=== PATIENT | male | born 1940 | race Caucasian/White ===

== ENCOUNTER 2016-12-20 06:21 | Observation (INO) | payer MEDICARE ==
[2016-12-20] MEDS ORDERED: Vancomycin(*) 1,000 MG in NS 0.9% 250 ML* 250 ML IVPB ONE (06:52)
[2016-12-20 08:08] LABS: Hematocrit 35 % (42-52); Hemoglobin 11.2 g/dl (14.0-18.0); Mean Corpuscular HGB Conc 33 g/dl (31-36); Mean Corpuscular Hemoglobin 35 pg (27-31); Mean Platelet Volume 8 um3 (7.4-10.4); Red Blood Count 3.18 10^6/ul (4.0-5.4); Red Cell Distribution Width 17 % (10.5-15); White Blood Count 18.6 10^3/ul (3.5-10.8)
[2016-12-20 08:09] LABS: Comments Flag Yes
[2016-12-20 08:10] LABS: Add Diff/Slide Review? Slide Review Added; Mean Corpuscular Volume 109 fL (80-94)
[2016-12-20 08:20] LABS: Albumin 3.9 g/dL (3.2-5.2); BUN/Creatinine Ratio 5.9 (8-20); Calcium 9.4 mg/dL (8.6-10.3); EGFR African American 10.6 (>60); EGFR Non-African American 8.2 (>60); Globulin 3.3 g/dL (2-4); Potassium 4.2 mmol/L (3.5-5.0); Total Bilirubin 1.9 mg/dL (0.2-1.0); Total Protein 7.2 g/dL (6.4-8.9)
--- NOTE | 2016-12-20 08:27 | RAD ---
HISTORY: Fever, confusion, weakness COMPARISONS: February 04, 2016 VIEWS: 2: frontal portable view of the chest at 6:50 AM FINDINGS: LINES AND TUBES: None. CARDIOMEDIASTINAL SILHOUETTE: The cardiomediastinal silhouette is normal for portable technique. PLEURA: The costophrenic angles are sharp. No pleural abnormalities are noted. LUNG PARENCHYMA: The lungs are clear. ABDOMEN: The upper abdomen is clear. There is no subphrenic gas. BONES AND SOFT TISSUES: No bone or soft tissue abnormalities are noted. IMPRESSION: NO ACTIVE CARDIOPULMONARY DISEASE.
[2016-12-20] MEDS ORDERED: Cefepime(*) 1 GM in NS 0.9% 50 ML* 50 ML IVPB ONE (08:29)
[2016-12-20] MEDS ORDERED: NS 0.9% 1000 ML* 1,000 ML IV ONE (08:29)
[2016-12-20 08:33] LABS: Troponin I 0.13 ng/mL (<0.04)
--- NOTE | 2016-12-20 09:30 | ED ---
Chaz Lee Thomas, scribed for Lion Horne MD on 12/20/16 at 0828 . Progress - Progress Note Progress Note: The patient is a sign out from Dr. Whiteside at shift change. At 08:28, I consulted with Dr. Woodard, hospitalist, who will admit the patient to [facility] [place]. Course/Dx - Course Course Of Treatment: Mr. Brown presented to the ED on a previous shift febrile and feeling shaky. His only other symptom was that his noticed his urine dribbled on the way to the BR this AM. He was given Vanco and labs were being obtained when I came on shift. His pressure was a bit soft in the 90 's so I gave him some fluid slowly and judiciously as well as adding cefepime for the gram negative coverage. He was noted to have frequent VPCs and a trop of 1.3 although his trops generally run in that vicinity. He is being admitted to telemetry. - Diagnoses Provider Diagnoses: Sepsis - Critical Care Time Critical Care Time: 30-74 min The documentation as recorded by the Chaz machuca Thomas accurately reflects the service I personally performed and the decisions made by me, Lion Horne MD.
[2016-12-20 09:34] LABS: Magnesium 1.7 mg/dL (1.9-2.7)
[2016-12-20] MEDS ORDERED: NS 0.9% 50 ML* 50 ML ONE (09:43)
[2016-12-20] MEDS ORDERED: Acetaminophen TAB* 325 MG PO PRN (09:46)
[2016-12-20] MEDS ORDERED: Senna TAB PO PRN (09:46)
[2016-12-20] MEDS ORDERED: Morphine INJ* 2 MG/ML 1 ML SYRINGE (TWO MG - NEW SYRINGE VERSION) IV PRN (09:46)
[2016-12-20 09:48] LABS: C Reactive Protein 166.62 mg/L (< 5.00)
[2016-12-20] MEDS ORDERED: NS 0.9% 1000 ML* 1,000 ML IV SCH (10:00)
[2016-12-20] MEDS ORDERED: Magnesium Sulfate 2 GM IV* 2 GM/50 ML BAG IVPB ONE (10:08)
[2016-12-20 10:42] LABS: Urine Bacteria Absent (Absent); Urine Bilirubin Negative (Negative); Urine Glucose Negative (Negative); Urine Nitrite Negative (Negative)
--- NOTE | 2016-12-20 12:46 | HP ---
CC: Dr. Aguirre; Dr. Hastings * HISTORY AND PHYSICAL: DATE OF ADMISSION: 12/20/16 PRIMARY CARE PROVIDER: Dr. Aguirre. CHIEF COMPLAINT: Confusion and fever. HISTORY OF PRESENT ILLNESS: Patel Brown is a 75-year-old male with history of endstage renal disease as well as on chronic budesonide p.o. for microscopic colitis, who had dialysis yesterday and after dialysis, he felt poorly. He went to bed, was confused at night and as per , slightly "agitated." The patient apparently gets hyperactive and confused whenever he gets ill. He presented to the ED with a temperature of 99.9 degrees. So far, we do not have the source of his infection, apart from that he had been coughing up clear sputum for the past several days and has history of frequent pneumonias. At this point, he is going to be admitted with a working diagnosis of sepsis, likely due to bronchitis. He is going to be placed on broad spectrum antibiotics. PAST MEDICAL HISTORY: 1. Endstage renal disease on dialysis Mondays, Wednesdays and Fridays. 2. History of atrial fibrillation, Coumadin was discontinued in January 2016 when the patient had a lower GI bleed and several units of packed red blood cell transfusions. Since then, the patient had not been on anticoagulation. 3. History of recurrent C. diff, status post fecal transplant. 4. History of hypertension. 5. Diabetes, diet controlled. 6. History of diastolic CHF with EF of 55% to 60% in 2014. 7. History of COPD, not on oxygen at home. 8. History of coronary artery disease, status post HI. 9. History of elevated troponins in the past due to endstage renal disease and stress and demand ischemia. 10. History of microscopic colitis, noted in 2010, on budesonide every since. 11. History of chronic microcytic anemia, on iron infusions and Epogen infusions, on dialysis. 12. History of peripheral vascular disease. 13. 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 14. History of carotid endarterectomy. 15. History of cataract surgery. 15. Appendectomy. 16. Orchiectomy. 17. Fistula placement. 18. History of fecal transplant. MEDICATIONS AT HOME: Include: 1. Multivitamin 1 tablet daily. 2. Fiber supplement daily. 3. Midodrine 5 mg daily in the a.m. 4. Aspirin 81 mg daily. 5. Symbicort 160/4.5 two puffs b.i.d. 6. Lipitor 10 mg daily. 7. Torsemide 40 mg b.i.d. 8. Zaroxolyn 2.5 mg every other day. 9. Omeprazole 20 mg daily. 10. Pletal 100 mg b.i.d. 11. Entocort EC (budesonide) 3 mg daily. 12. Metoprolol tartrate 12.5 mg b.i.d. 13. Allopurinol 200 mg daily. ALLERGIES: LISINOPRIL causes hives, swelling of lips and tongue. BENICAR causes severe diarrhea and dizziness. FAMILY HISTORY: Positive for father with diabetes and polio, two brothers with colon cancer. SOCIAL HISTORY: The patient has history of smoking remotely with [id number] history of smoking, quit in . He denies any alcohol or drug use. He lives with his , who is his healthcare proxy. His 's name is Cyndi Brown. REVIEW OF SYSTEMS: On review of systems, please see history of present illness. The other remaining 12 systems were reviewed with the patient with the help of his and were otherwise negative. PHYSICAL EXAMINATION GENERAL: The patient is a pleasant 75-year-old male who is slightly confused, with poor recall, but is still oriented x3 the remainder of evaluation. He appears in no acute distress or discomfort. VITAL SIGNS: Blood pressure in the emergency department were in the 90's, currently is 119/53, heart rate of 104 and irregular, respiratory rate 27, oxygen saturation 96%, on 2 L of oxygen via nasal cannula, temperature of 99.9. HEENT: Head: Atraumatic, normocephalic. Eyes: Pupils are equal and reactive to light and accommodation. Oropharynx clear. Mucosa moist. NECK: Supple. No JVD. No bruits bilaterally. RESPIRATORY: Clear to auscultation bilaterally. CARDIOVASCULAR: Irregularly irregular rhythm, no murmur. ABDOMEN: Protuberant, soft, nontender. Bowel sounds are present in all 4 quadrants. EXTREMITIES: There is no edema. Pulses are +2 bilaterally. No clubbing or cyanosis. NEURO EVALUATION: Speech clear. Cranial nerves II through XII are grossly intact. Motor strength is 5/5 bilaterally. PSYCHIATRIC EVALUATION: Although the patient is oriented x3, he is hyperactive , mildly encephalopathic with poor recall. SKIN: The patient has scattered seborrheic keratosis on upper and lower extremities. DIAGNOSTIC STUDIES/LAB DATA: Showed a white blood cell count of 18.6, hemoglobin of 11.2, hematocrit of 35, MCV of 109, and platelets of 151. Sodium of 134, potassium 4.2, chloride 90, carbon dioxide 31, BUN 39, creatinine 6.6. Lactic acid of 2.3. Liver function tests showed normal bilirubin of 1.9, otherwise patient's AST and ALT are not elevated and alkaline phosphatase is 102, which is within normal limits. Magnesium was low at 1.7. Troponin of 0.12, which is consistent with prior. C-reactive protein was 166. The patient's portable chest x-ray did not show any acute abnormalities. The patient's EKG showed multiple PVCs and PACs with what appears to be underlying sinus rhythm with a heart rate of 110 beats per minute. Comparing with patient' s prior EKGs, the patient's right bundle-branch block is unchanged. The multiple PVCs are new, although from past medical history, the patient has history of rate related left bundle. Urinalysis is pending at the time of dictation. Blood cultures were obtained. ASSESSMENT AND PLAN: 1. At this point, the patient meets sepsis criteria. I suspect this is due to bronchitis, unless we find any other source of infection. He was treated with vancomycin and cefepime in the emergency department. He is going to be switched to ceftriaxone and azithromycin in the hospital. Blood cultures are obtained and pending. I will also obtain urinalysis after straight cath. The patient does produce urine once a day. 2. In regards to patient's chronic obstructive pulmonary disease, this is not in exacerbation. His Symbicort is going to be switched to Dulera while in the hospital, which is on formulary. 3. For his history of atrial fibrillation. Currently, the patient has multiple premature ventricular contractions and premature atrial contractions noted, and underlying what appears to be sinus rhythm with right bundle-branch block. He has low magnesium and he is septic. He is going to be placed on telemetry monitored floor, his magnesium is going to be replaced. I will also continue his beta godwin. 4. In regards to patient's history of microscopic colitis. His symptoms today do not appear to be related to gastrointestinal issues. His bowel had been regular without any problems. He has no abdominal pain. He is on Entocort, which is not on formulary. In fact, we do not have any p.o. budesonide available at the hospital. Due to patient being right now septic, I will place him on IV Solu- Medrol for the time being. For my review of systemic absorption of budesonide is approximately 9% to 21%. Nevertheless, at this point, I think that it would be beneficial for the patient to have a dose of steroids. 5. The patient's elevated troponin is his baseline. Nevertheless, I will check it in a few hours. He denies any chest pain. He is going to be continued on telemetry. 6. In regards to the patient's history of endstage renal disease. The patient' s dialysis was on Thursday. I will not resuscitate him with high volume due to his history of endstage renal disease. He received 1 L of intravenous fluids in the emergency department and he is going to be placed on intravenous fluids at 75 mL an hour. I will continue his torsemide, but we will hold Zaroxolyn for the time being. 7. For DVT prophylaxis, the patient is high risk and he is going to be placed on heparin subcutaneously. 8. The patient's code status is do not resuscitate and MOLST was confirmed with patient's . TIME SPENT: Approximately 65 minutes was spent on admission of this patient, more than half that time was spent [id number] with the patient and patient's during the interview and physical exam. [id number]/[facility] #: [id number] [facility]ITALChris
[2016-12-20] MEDS: Azithromycin IV(*) 500 MG in NS 0.9% 250 ML* 250 ML IVPB SCH (13:38)
[2016-12-20] MEDS: Heparin VIAL(*) 5000 UNITS/ML VIAL (FIVE THOUSAND) SUBCUT SCH ×2 (14:25→22:06)
[2016-12-20] MEDS: Mometasone/Formoter 100/5 MDI INH SCH (20:41)
[2016-12-20] MEDS: Cilostazol TAB* 100 MG PO SCH (22:06)
[2016-12-20] MEDS: Docusate CAP* 100 MG PO SCH (22:06)
[2016-12-20] MEDS: Lactobacillus Acidophilu (GG)* 1 CAP CAP PO SCH (22:06)
[2016-12-20] MEDS: Metoprolol Tartrate TAB* 25 MG PO SCH (22:06)
[2016-12-20] MEDS: Torsemide TAB* 20 MG PO SCH (22:06)
[2016-12-21] MEDS: Heparin VIAL(*) 5000 UNITS/ML VIAL (FIVE THOUSAND) SUBCUT SCH (05:36)
[2016-12-21 06:53] LABS: Hematocrit 28 % (42-52); Hemoglobin 9.2 g/dl (14.0-18.0); Mean Corpuscular HGB Conc 33 g/dl (31-36); Mean Corpuscular Hemoglobin 36 pg (27-31); Mean Platelet Volume 8 um3 (7.4-10.4); Red Blood Count 2.59 10^6/ul (4.0-5.4); Red Cell Distribution Width 17 % (10.5-15); White Blood Count 12.5 10^3/ul (3.5-10.8)
[2016-12-21 06:56] LABS: Comments Flag Yes; Mean Corpuscular Volume 109 fL (80-94)
[2016-12-21 07:09] LABS: BUN/Creatinine Ratio 6.3 (8-20); Calcium 8.8 mg/dL (8.6-10.3); EGFR Non-African American 6.2 (>60); Potassium 4.3 mmol/L (3.5-5.0)
[2016-12-21] MEDS ORDERED: Omeprazole CAP* 20 MG PO SCH (07:30)
[2016-12-21 08:16] LABS: Magnesium 2.3 mg/dL (1.9-2.7)
[2016-12-21] MEDS ORDERED: CMCS - Midodrine (NF) 5 MG TAB PO SCH (08:30)
[2016-12-21] MEDS: Mometasone/Formoter 100/5 MDI INH SCH (08:38)
[2016-12-21] MEDS: Docusate CAP* 100 MG PO SCH (08:58)
[2016-12-21] MEDS: Cilostazol TAB* 100 MG PO SCH (08:58)
[2016-12-21] MEDS: Lactobacillus Acidophilu (GG)* 1 CAP CAP PO SCH (08:59)
[2016-12-21] MEDS: Metoprolol Tartrate TAB* 25 MG PO SCH (08:59)
[2016-12-21] MEDS: Torsemide TAB* 20 MG PO SCH (08:59)
[2016-12-21] MEDS ORDERED: methylPREDNISolone SOD 40 MG* 1 ML VIAL IV SCH (09:00)
[2016-12-21] MEDS ORDERED: Atorvastatin* 10 MG TAB PO SCH (09:00)
[2016-12-21] MEDS ORDERED: Aspirin Low Dose CHEW TAB* 81 MG PO SCH (09:00)
[2016-12-21] MEDS ORDERED: Allopurinol TAB* 100 MG PO SCH (09:00)
[2016-12-21] MEDS ORDERED: cefTRIAXone VIAL(*) 1,000 MG in NS 0.9% 50 ML* 50 ML IVPB SCH (11:00)
[2016-12-21] MEDS: Azithromycin IV(*) 500 MG in NS 0.9% 250 ML* 250 ML IVPB SCH (11:44)
[2016-12-21 12:42] VITALS: BP 110/42
--- NOTE | 2016-12-22 06:00 | DS ---
CC: Dr. Michael Aguirre * DISCHARGE SUMMARY: DATE OF ADMISSION: 12/20/16 DATE OF DISCHARGE: 12/21/16 PRIMARY CARE PROVIDER: Michael Aguirre MD MY ATTENDING WHILE IN THE HOSPITAL: Moises Kaur MD * (DICTATED BY SELENE WOLF) PRIMARY DISCHARGE DIAGNOSES: 1. Urinary tract infection. 2. Altered mental status. SECONDARY DISCHARGE DIAGNOSES: 1. End-stage renal disease with dialysis. 2. Atrial fibrillation, not on anticoagulation. 3. Clostridium diff, status post fecal transplant. 4. Hypertension. 5. Diabetes. 6. Congestive heart failure. 7. Chronic obstructive pulmonary disease. 8. Coronary artery disease, status post myocardial infarction. 9. Microscopic colitis. 10. Microcytic anemia with iron infusions. 11. Peripheral vascular disease. 12. Right bundle-branch block with left anterior hemiblock. 13. Carotid endarterectomy. 14. Cataract surgery. 15. Appendectomy. 16. Orchiectomy. 17. Fistula placement. STUDIES DONE WHILE IN THE HOSPITAL: 1. Chest x-ray from 12/20/16 read as no active cardiopulmonary disease. 2. Electrocardiogram from 12/20/16 shows sinus tachycardia with occasional ventricular bigeminy, right bundle-branch block, un-interpretable ST segment and left axis deviation. PVCs are new since previous record. 3. Chest X-Ray from 12/20/16 read as no significant changes from previous. MEDICATIONS AT DISCHARGE: 1. Omeprazole 20 mg p.o. daily. 2. Pletal 100 mg p.o. b.i.d. 3. Allopurinol 200 mg p.o. daily. 4. Lipitor 10 mg p.o. daily. 5. Metolazone 2.5 mg p.o. every other day. 6. Torsemide 40 mg p.o. b.i.d. 7. Aspirin 81 mg p.o. daily. 8. Multivitamin 1 tab p.o. daily. 9. Entocort 3 mg p.o. daily. 10. Midodrine 2.5 mg p.o. daily with meal. 11. Symbicort 160/4.5 two puffs inhalation b.i.d. 12. Metoprolol tartrate 12.5 mg p.o. b.i.d. 13. Fiber 1 tab p.o. daily. 14. Cefpodoxime 200 mg every other other after dialysis x3. New medication at discharge, cefpodoxime. Discontinued medications at discharge, none. HOSPITAL COURSE: This is a brief summary of the patient's presentation. For more details, please see the history and physical from Dr. Delmi Woodard from 12/20/16. In brief, the patient is a 75-year-old male with past medical history as above, who went to bed on 12/19/16 and was confused during night and slightly agitated. This was consistent with previous episodes where he became ill. Patient presented to the ED with the temperature of 99.9. Patient had been coughing up clear sputum for several days to the day of presentation, but on other interview stated this has been going on for months. Patient met sepsis criteria and received antibiotics while in the emergency department. Patient was admitted to the hospital, given ceftriaxone and azithromycin in addition to one dose of vancomycin and cefepime in the emergency department. Patient improved greatly overnight, returned to his baseline per his . Patient's vital signs are stable. Patient continued to have frequent PVCs on telemetry monitoring, but was no longer in bigeminy. At discharge, patient had no more. Patient's T-max overnight 99.6. Patient has no acute complaints and said he felt absolutely fine on 12/21/16. Patient had no symptoms from his urinary tract infection. Patient's urine grew E. coli 75 to 1000 colonies. Patient was discharged on 12/21/16 with prescription for cefpodoxime to be taken every day after dialysis. PHYSICAL EXAMINATION ON DAY OF DISCHARGE: General: The patient is a 75-year- old male who appears older than stated age and sitting in the exam bed, in no acute distress. Vital Signs: At discharge, temperature 97.5, pulse rate 90, respiratory rate 16, oxygen saturation 97% on room air, blood pressure 113/38. HEENT: Head normocephalic, atraumatic. Sclerae anicteric. No conjunctival injection. Nasal mucosa moist. Pharynx: Nonerythematous. Oral mucosa moist. Neck: Supple. Nontender. No lymphadenopathy. No carotid bruits auscultated. Cardiac: Regular rate and rhythm. No clicks, murmurs, gallops or rubs. Pulses 2+ in bilateral dorsalis pedis, posterior tibialis, and radial area. Lungs: Clear to auscultation bilaterally. No wheezes, rales, or rhonchi. Good air exchange. Abdomen: Obese, nontender. There is a slight area of tenderness in the central abdomen which the patient states is a chronic problem. Bowel sounds present and normoactive in all 4 quadrants. No hepatosplenomegaly. No abdominal bruit auscultated. Genitourinary: No CVA tenderness or suprapubic tenderness. Skin: Clean, dry, intact. No rash. Neuro : Cranial nerves II through XII grossly intact. Alert and oriented x3. No focal deficits. Psychiatric: Patient is pleasant and cooperative. LABORATORY DATA: On the day of discharge: White blood cell count 12.5, hemoglobin 9.2, MCV 109, MCH 36, RDW 17, platelet count 123. Sodium 135, potassium 4.3, chloride 95, BUN 53, creatinine 8.36, glucose 88, calcium 8.8, magnesium 2.3. Of note, lactic acid on 12/20/16 is 2.3 and repeat at 1.7. Troponin I was 1.3 x2. DISCHARGE PLAN: The patient will be discharged to follow up with his primary care doctor. Patient will be treated with cefpodoxime 200 mg p.o. after each session of dialysis due to poor renal clearance. Patient should follow up with his primary care doctor within 1 week. Patient should return to the hospital for significant increase shortness of breath, fever, chills, altered mental status, or other alarming symptoms. Patient should have dialysis scheduled Thursday, Thursday, and Thursday. Patient will follow up with maintenance service dispatcher as scheduled. Patient should engage in activities as tolerated and have a renal, heart-healthy consistent carbohydrate diet. TIME SPENT: Approximately 40 minutes was spent on this discharge, 20 minutes of which was spent [id number] with the patient obtaining history and physical and discussing the treatment plan. SELENE WOLF [id number]/[facility] #: [id number] [facility]
[2016-12-22] MEDS ORDERED: Metolazone TAB* 5 MG PO SCH (09:00)
== END 2016-12-21 14:00 | disposition home or self-care (01) ==
LOC: ED 06:21 → MED 08:31
PROVIDERS: ADMIT Internal Medicine; ATTEND Internal Medicine
DX: N39.0 Urinary tract infection, site not specified (principal); R41.82 Altered mental status, unspecified; I13.2 Hypertensive heart and chronic kidney disease with heart failure and with stage 5 chronic kidney disease, or end stage renal disease; E11.22 Type 2 diabetes mellitus with diabetic chronic kidney disease; N18.6 End stage renal disease; I50.9 Heart failure, unspecified; Z99.2 Dependence on renal dialysis; I48.91 Unspecified atrial fibrillation; J44.9 Chronic obstructive pulmonary disease, unspecified; I25.10 Atherosclerotic heart disease of native coronary artery without angina pectoris; I25.2 Old myocardial infarction; D50.9 Iron deficiency anemia, unspecified; I73.9 Peripheral vascular disease, unspecified; I45.10 Unspecified right bundle-branch block; Z79.899 Other long term (current) drug therapy; Z88.8 Allergy status to other drugs, medicaments and biological substances; Z87.891 Personal history of nicotine dependence; R74.8 Abnormal levels of other serum enzymes; R00.0 Tachycardia, unspecified
CPT/HCPCS: 36415; 71010; 80048; 80053; 81003; 81015; 83605; 83735; 84484; 85025; 85610; 85730; 86140; 87040; 87077; 87086; 87186; 87502; 93005; 94640; 96365; 96366; 96367; 96372; 96375; 99291; A9270-GY; G0378; J0456; J0692; J0696; J1644; J2920; J3370; J3475

== ENCOUNTER 2017-08-23 22:09 | Inpatient (IN) | payer MEDICARE ==
[2017-08-23] MEDS ORDERED: NS 0.9% 1000 ML* 1,000 ML IV ONE (22:27)
[2017-08-23] MEDS ORDERED: Pantoprazole IV* 40 MG IV ONE (22:27)
--- OUTSIDE RECORDS SUMMARY | 2017-08-23 22:28 | XMS REPORT ---
:1940 External Reference #:[id number] Author Organization [employer] Address [address] [place] [address] [place] [address] Phone [phone] Care Team Providers Name Role Phone Michael Aguirre MD Primary Care Physician Unavailable Payers Type Date Identification Numbers Payment Provider Subscriber Medicare Primary Effective: Policy Number: Medicare Patel Brown 2004 [id number] PayID: [id number] [address] [place] [address] [facility] Policy Number: [facility] Patel Brown JR [id number] PayID: [id number] [address] [place] [address] Problems Description No Information Family History Date Family Member(s) Problem(s) Comments General No Current Problems Social History Type Date Description Comments Lives With Spouse Occupation Retired ETOH Use Denies alcohol use Smoking Patient is a former smoker 1 - 1.5 ppd x 30 yrs - quit 1989 Exercise Type/Frequency Does not exercise Allergies, Adverse Reactions, Alerts Date Description Reaction Status Severity Comments 03/12/2015 Benicar active 03/12/2015 Lisinopril active Medications Medication Date Status Form Strength Qnty SIG Indications Ordering Provider Xeroform 5"X9" 08/03/ Active use once S52.125A Tova 2018 daily for Pérez, dressing M.D. changes Roll Gauze 3" 08/03/ Active 30unit use for S52.125A Tova 2018 s dressing Pérez, changes M.D. once daily Budesonide ER 00/00/ Active Caps ER 3mg 2 by mouth Unknown 0000 24HR daily Metoprolol / Active Tablets 25mg 60tabs 1/2 by Unknown Tartrate 0000 mouth twice a day Torsemide / Active Tablets 20mg 2 by mouth Unknown 0000 twice a day Atorvastatin / Active Tablets 10mg 1 by mouth Unknown Calcium 0000 every day Metolazone / Active Tablets 2.5mg take 1 Unknown 0000 tablet by mouth every other day 1 hr prior to dialysis Cilostazol / Active Tablets 100mg 1 by mouth Unknown 0000 twice a day Allopurinol / Active Tablets 100mg 2 by mouth Unknown 0000 every day Omeprazole / Active Capsules 20mg 1 by mouth Unknown 0000 DR every day Aspirin Adult / Active Tablets DR 81mg 1 by mouth Unknown Low Dose 0000 every day Nephrovite / Active Tablets 1 by mouth Unknown 0000 every day Fiber Therapy / Active Powder 2GM/10.2GM 1 po qd Unknown 0000 Epoetin Rocky / Active 9000 9000 units Unknown 0000 IV at dialysis Hectorol / Active 2mcg IVat Unknown 0000 dialysis Venofer / Active Solution 20mg/ml IV at Unknown 0000 dialysis Renvela / Active Tablets 800mg 3 po with Unknown 0000 every meal and snack Ropinirole HCL / Active Tablets 0.25mg 1 po bid Unknown 0000 Symbicort / Active Aerosol 160-4.5mcg 2 puff Unknown 0000 /Act twice a day Midodrine HCL / Active Tablets 5mg 1 tab Unknown 0000 prior to dialysis Loratadine / Active Tablets 10mg 1 by mouth Unknown 0000 every day Vancomycin HCL 03/12/ Hx Capsules 125mg 45caps 3 times a A04.7 Ciro Yates 2016 - day until [place], 03/26/ two days M.D. 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 , then stop Vancomycin HCL / Hx Capsules 125mg 1 po 4 x Unknown 0000 - daily x 2 03/12/ wks 2015 Florastor / Hx Capsules 250mg by mouth Unknown 0000 - four times 03/08/ a day 2015 Dificid / Hx Tablets 200mg 1 po bid Unknown 0000 - 2015 Cephalexin / Hx Capsules 250mg 1 tab by Unknown 0000 - mouth 04/06/ twice per 2016 day Tramadol HCL / Hx Tablets 50mg 2 po prn Unknown 0000 - pain 2017 Fish Oil / Hx Capsules 1000mg 1 by mouth Unknown 0000 - twice a 2016 Doxycycline / Hx Capsules 100mg 1 po bid Unknown Hyclate - 2015 Warfarin / Hx Tablets 2.5mg Unknown Sodium - 2016 Doxycycline / Hx Capsules 100mg Unknown Hyclate - 2015 Vital Signs Date Vital Result Comment 08/13/2017 Height 71 inches 5'11" Weight 254.00 lb Heart Rate 64 /min Respiratory Rate 22 /min Body Temperature 97.4 F Pain Level 0 BMI (Body Mass Index) 35.4 kg/m2 08/03/2017 Height 71 inches 5'11" Weight 254.00 lb Heart Rate 76 /min BP Systolic 124 mmHg BP Diastolic 74 mmHg Respiratory Rate 14 /min Body Temperature 99.1 F Pain Level 7 BMI (Body Mass Index) 35.4 kg/m2 07/10/2016 Height 71 inches 5'11" Weight 230.00 lb Heart Rate 90 /min BP Systolic Sitting 116 mmHg BP Diastolic Sitting 54 mmHg Respiratory Rate 18 /min Body Temperature 98.7 F BMI (Body Mass Index) 32.1 kg/m2 06/05/2016 Height 71 inches 5'11" Weight 227.00 lb Heart Rate 84 /min BP Systolic Sitting 106 mmHg BP Diastolic Sitting 60 mmHg Respiratory Rate 20 /min Body Temperature 98.5 F BMI (Body Mass Index) 31.7 kg/m2 08/28/2015 Height 71 inches 5'11" Weight 220.12 lb Heart Rate 118 /min BP Systolic Sitting 138 mmHg BP Diastolic Sitting 88 mmHg Respiratory Rate 16 /min Body Temperature 98.4 F O2 % BldC Oximetry 96 % BMI (Body Mass Index) 30.7 kg/m2 08/15/2015 Height 71 inches 5'11" Weight 219.00 lb Heart Rate 79 /min BP Systolic Sitting 138 mmHg BP Diastolic Sitting 64 mmHg Respiratory Rate 16 /min Body Temperature 99.6 F O2 % BldC Oximetry 95 % BMI (Body Mass Index) 30.5 kg/m2 06/13/2015 Height 71 inches 5'11" Weight 218.00 lb Heart Rate 58 /min BP Systolic Sitting 138 mmHg BP Diastolic Sitting 60 mmHg Respiratory Rate 18 /min Body Temperature 99.4 F O2 % BldC Oximetry 97 % BMI (Body Mass Index) 30.4 kg/m2 03/27/2015 Height 71 inches 5'11" Weight 219.25 lb Heart Rate 80 /min BP Systolic Sitting 120 mmHg BP Diastolic Sitting 60 mmHg Respiratory Rate 18 /min Body Temperature 98.3 F BMI (Body Mass Index) 30.6 kg/m2 03/12/2015 Height 71 inches 5'11" Weight 220.00 lb Heart Rate 86 /min BP Systolic Sitting 112 mmHg BP Diastolic Sitting 55 mmHg Respiratory Rate 18 /min Body Temperature 98.8 F BMI (Body Mass Index) 30.7 kg/m2 Results Test Date Test Result H/L Range Note Laboratory test finding 06/09/2016 TSH (Thyroid Stim 3.40 mcIU/mL 0.34- 5.60 Horm) CBC Auto Diff 06/09/2016 White Blood Count 12.2 10^3/uL High 3.5-10.8 Red Blood Count 3.50 10^6/uL Low 4.0-5.4 Hemoglobin 12.0 g/dL Low 14.0-18.0 Hematocrit 37 % Low 42-52 Mean Corpuscular Volume 107 fL High 80-94 Mean Corpuscular Hemoglobin 34 pg High 27-31 Mean Corpuscular HGB Conc 32 g/dL 31-36 Red Cell Distribution Width 17 % High 10.5-15 Platelet Count 172 10^3/uL 150-450 Mean Platelet Volume 8 um3 7.4-10.4 Abs Neutrophils 8.4 10^3/uL High 1.5-7.7 Abs Lymphocytes 2.6 10^3/uL 1.0-4.8 Abs Monocytes 0.9 10^3/uL High 0-0.8 Abs Eosinophils 0.2 10^3/uL 0-0.6 Abs Basophils 0.1 10^3/uL 0-0.2 Abs Nucleated RBC 0.02 10^3/uL Granulocyte % 69.2 % 38-83 Lymphocyte % 21.2 % Low 25-47 Monocyte % 7.5 % 1-9 Eosinophil % 1.7 % 0-6 Basophil % 0.4 % 0-2 Nucleated Red Blood Cells % 0.1 Laboratory test 06/06/2016 C Difficile PCR SEE RESULT BELOW 1, 2 finding Acid Fast Culture & 08/17/2015 Acid Fast Culture Smear SEE RESULT BELOW 3 Smear Sputum Culture & 08/17/2015 Sputum Culture Gram SEE RESULT BELOW 4 Sensitiv Stain Laboratory test 08/17/2015 Mycobacterial Culture See Comment 5 finding Acid Fast Culture & 08/16/2015 Acid Fast Culture Smear SEE RESULT BELOW 6 Smear Laboratory test 08/16/2015 Mycobacterial Culture See Comment 7 finding Acid Fast Culture & 08/15/2015 Acid Fast Culture Smear SEE RESULT BELOW 8 Smear Laboratory test 08/15/2015 Mycobacterial Culture See Comment 9 finding 1 C. Difficile toxin testing is not performed on formed stool specimens. Test of cure on positive 2 SEE RESULT BELOW Name: PATEL BROWN JR : [address]: Ciro Yip MD Acct: [id number] Unit: [id number] AGE: 75 Location: [facility] Re06/06/16 SEX: M Status: REG REF SPEC: [id number] AARON: 06/06/16-1225 [facility] DR: Ciro Yip MD REQ: [id number] RECD: 06/06/161948 STATUS: COMP _ SOURCE: STOOL SPDESC: ORDERED: C. diff PCR/S, Stool Culture/R, Fecal Lactoferr/R, Giardia Antigen/ R COMMENTS: C. Difficile toxin testing is not performed on formed stool specimens. Test of cure on positive patients is not recommended. Verbal to KAN by [id number] at 1536 on 06/06/16. Procedure Result Reported Site Stool Culture Final 06/08/16- 1343 ML Result No enteric pathogens isolated Testing for Salmonella, Shigella, Aeromonas, Plesiomonas, Yersinia and Campylobacter are included in a Stool Culture. Vibrio spp not routinely tested for in a stool culture. If testing is desired, please request specifically when placing test order. Sensitivities not routinely performed on stool isolates, as antibiotics may prolong the carriage rate of bacteria. Please contact the microbiology lab if sensitivities are required. Stool Specimen Description Final 06/06/16- 1443 ML Stool Color Brown Stool Form Formed Stool Consistency Firm Shiga Toxin 1 2 Final 06/09/16- 1152 ML Organism 1 Negative Shiga Toxin 1 2 CONTINUED ON NEXT PAGE * ML=Testing performed at Main Lab DEPARTMENT OF PATHOLOGY, [address] [place] [address] Perry Larson M.D. Director [facility] # [id number] Patient: PATEL BROWN JR [id number] (Continued) Specimen: [id number] Collected: 06/06/16 Received: 06/06/16 (Continued) Procedure Result Reported Site Shiga Toxin 1 2 Final (continued) 06/09/16- 1152 Immunochromatographic Assay C. difficile PCR Final 06/06/16- 1443 ML Test not performed Fecal Lactoferrin (Stool WBC) Final 06/06/16- 1511 ML Fecal Lactoferrin Negative by Immunoassay TEST LIMITATIONS: Assay detects elevated levels of lactoferrin released from fecal leukocytes as a marker of intestinal inflammation. The test may not be appropriate in immunocompromised persons. Fecal samples from breast fed infants should not be used with this assay. Giardia Antigen Screen Final 06/09/16- 1326 ML Organism 1 Negative Giardia Giardia antigen testing performed by enzyme immunoassay. If patient is immunocompromised or has traveled to or is from a developing country, a full ova and parasite exam with microscopic (OPMIC) is recommended. All samples will be held one month in case full ova and parasite testing is requested. Contact the Microbiology Department at [phone]. * ML - MAIN LAB ([facility]) . END OF REPORT * ML=Testing performed at Main Lab DEPARTMENT OF PATHOLOGY, [address] [place] [address] Perry Larson M.D. Director [facility] # [id number] 3 SEE RESULT BELOW Name: PATEL BROWN JR : [address]: Ciro Ypi MD Acct: [id number] Unit: [id number] AGE: 74 Location: [facility] Re08/17/15 SEX: M Status: REG REF SPEC: [id number] AARON: 08/17/150 [facility] DR: Ciro Yip MD REQ: [id number] RECD: 08/17/15604 STATUS: COMP _ SOURCE: RESP SPDESC:SPUTUM ORDERED: AFB Cult Smear Procedure Result Reported Site Acid Fast Stain - Direct Final 08/17/15- 1423 ML AFB Smear Result No Acid Fast Bacillus Present (Negative) Preparation By Direct Smear Due to limited sensitivity of the smear, results should be used as an adjunct in evaluating the patient's status and cultural examination is highly recommended for diagnosis. * ML - MAIN LAB ([facility]) . END OF REPORT * ML=Testing performed at Main Lab DEPARTMENT OF PATHOLOGY, [address] [place] [address] Perry Larson M.D. Director [facility] # [id number] 4 SEE RESULT BELOW Name: PATEL BROWN JR : [address]: Ciro Yip MD Acct: [id number] Unit: [id number] AGE: 74 Location: [facility] Re08/17/15 SEX: M Status: REG REF SPEC: [id number] AARON: 08/17/15-399 [facility] DR: Ciro Yip MD REQ: [id number] RECD: 08/17/15 STATUS: COMP _ SOURCE: SPUTUM SPDESC: ORDERED: Sputum Cult/GS Procedure Result Reported Site Sputum Smear Final 08/17/15- 1348 ML 4+ Neutrophils 1+ Epithelial Cells 4+ Gram Positive Cocci in Chains, resembling Strep 1+ Yeast Sputum Culture Final 08/19/15- 0843 ML Organism 1 NORMAL ROMEO Quantity 3+ * ML - [facility] ([facility]) . END OF REPORT * ML=Testing performed at [facility] [place] DEPARTMENT OF PATHOLOGY, [address] [place] [address] Perry Larson M.D. Director [facility] # [id number] 5 SOURCE: SPUTUM Mycobacteria specimen plated for culture, volume inadequate for optimal recovery. MYCOBACTERIAL CULTURE FINAL No growth after 60 days of incubation. Test Performed by: [place] [address] [employer] Analyst: Yamil Noland II, M.D., Ph.D. 6 SEE RESULT BELOW Name: PATEL BROWN : [address]: Ciro Yip MD Acct: [id number] Unit: [id number] AGE: 74 Location: [facility] Re08/16/15 SEX: M Status: REG REF SPEC: [id number] AARON: 08/16/15-0 [facility]: Ciro Yip MD REQ: [id number] RECD: 08/16/15 STATUS: COMP _ SOURCE: RESP SPDESC:SPUTUM EXP ORDERED: AFB Cult Smear Procedure Result Reported Site Acid Fast Stain - Direct Final 08/16/15- 1326 ML AFB Smear Result No Acid Fast Bacillus Present (Negative) Preparation By Direct Smear * ML - MAIN LAB ([facility]) . END OF REPORT * ML=Testing performed at Main Lab DEPARTMENT OF PATHOLOGY, [address] [place] [address] Perry Larson M.D. Director [facility] # [id number] 7 SOURCE: SPUTUM MYCOBACTERIAL CULTURE FINAL No growth after 60 days of incubation. Test Performed by: [place] [address] [employer] Analyst: Yamil Noland II, M.D., Ph.D. 8 SEE RESULT BELOW Name: DEREKJESICAPATEL Christensen : [address]: Ciro Yip MD Acct: [id number] Unit: [id number] AGE: 74 Location: [facility] Re08/15/15 SEX: M Status: REG REF SPEC: [id number] AARON: 08/15/15-1400 [facility] DR: Ciro Yip MD REQ: [id number] RECD: 08/15/15140 STATUS: COMP _ SOURCE: RESP SPDESC:SPUTUM ORDERED: AFB Cult Smear Procedure Result Reported Site Acid Fast Stain - Direct Final 08/16/15- 1318 ML AFB Smear Result No Acid Fast Bacillus Present (Negative) Preparation By Direct Smear Due to limited sensitivity of the smear, results should be used as an adjunct in evaluating the patient's status and cultural examination is highly recommended for diagnosis. * ML - MAIN LAB ([facility]) . END OF REPORT * ML=Testing performed at Main Lab DEPARTMENT OF PATHOLOGY, [address] [place] [address] Perry Larson M.D. Director [facility] # [id number] 9 SOURCE: SPUTUM MYCOBACTERIAL CULTURE FINAL No growth after 60 days of incubation. Test Performed by: [place] [address] [employer] Analyst: Yamil Noland II, M.D., Ph.D. Procedures Date CPT Code Description Status 07/30/2017 32647 ECHO Transthoracic, Real-Time 2D With Doppler And Color Completed Flow 07/30/2017 45808 ECHO Transthoracic, Real-Time 2D With Doppler And Color Completed Flow 12/20/2016 54261 EKG, Interpretation Only Completed 02/08/2016 53028 EKG, Interpretation Only Completed 08/04/2015 02116 EKG, Interpretation Only Completed 05/22/2015 66826 EKG, Interpretation Only Completed 05/21/2015 34531 EKG, Interpretation Only Completed 05/20/2015 57133 EKG, Interpretation Only Completed 01/26/2015 71779 EKG, Interpretation Only Completed 09/03/2014 58590 ECHO Transthorasic Realtime 2D W Doppler & Color Flow Completed Hosp 09/02/2014 54642 EKG, Interpretation Only Completed 10/11/2013 56336 ECHO Transthorasic Realtime 2D W Doppler & Color Flow Completed Hosp 01/03/2008 86769 Color Doppler Completed 01/03/2008 41875 Pulse Doppler & Continuous Wave Completed 01/03/2008 87151 Pulse Doppler & Continuous Wave Completed 01/03/2008 53733 Echocardiogram Completed Encounters Type Date Location Provider CPT E/M Dx Office Visit 08/13/2017 [facility] [place], 72836 S52.125D 9:15a Of Santiago Kelley S63.512A Office Visit 08/03/2017 11:00a [facility] [place], 93532 S52.125A Of Santiago Kelley S41.112A Office Visit 2016 2:05p [facility], SELENE Yan 72726 J40 Hospitalists A41.9 N18.6 G93.40 Office Visit 12/21/2016 2:05p [facility] Delmi Woodard M.D. 27216 J40 Hospitalists A41.9 N18.6 G93.40 Office Visit 07/10/2016 2:20p [facility] Ciro Yip, 43433 R19.7 Infectious Diseases M.DShivam Office Visit 06/05/2016 3:40p [facility] Ciro Yip, 28751 R19.7 Infectious Diseases M.DShivam Z86.19 Office Visit 02/08/2016 1:38p [facility] Fredy Arias, 75075 D64.9 Assoc,pc PA Hospitalists K92.2 N18.6 R79.89 Office Visit 02/07/2016 1:37p [facility] Fredy Arias, 93813 D64.9 Assoc,pc PA Hospitalists K92.2 N18.6 R79.89 Office Visit 02/06/2016 1:36p [facility] Alanna Phelps, 95673 K92.2 Assoc,pc MANAGER BATTERY Hospitalists D64.9 N18.6 R79.89 Office Visit 02/05/2016 1:36p [facility],pc Yen Royal, 07728 K92.2 Hospitalists MAdilson D64.9 N18.6 R79.89 Office Visit 02/04/2016 1:34p [facility], Delmi Yamilet, 45519 D64.9 Hospitalists Warren K92.2 N18.6 R79.89 Office Visit 08/28/2015 10:10a [facility] [place], [address] R05 Infectious Diseases Warren J18.9 Office Visit 08/15/2015 1:20p [facility] Ciro Yates 12277 J18.9 Infectious Diseases Warren Yip Office Visit 08/05/2015 10:54a [facility], [place] [address] J18.9 Hospitalists N18.6 A41.9 Z99.2 Office Visit 08/04/2015 10:53a [facility] [place] [address] N18.6 Hospitalists J18.9 A41.9 Z99.2 Office Visit 06/13/2015 2:20p [facility] Ciro Yip, 44827 J18.9 Infectious Diseases MAdilson R05 Office Visit 05/22/2015 10:13a [facility] Ciro Yip, 83190 J18.9 Infectious Diseases M.DShivam R19.7 N18.6 Z99.2 Z86.19 Office Visit 05/22/2015 12:20p [facility] Lazaro Ornelas, 21899 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 E87.3 N18.6 E11.9 Office Visit 03/27/2015 8:30a [facility] Ciro Yip, 18921 A04.7 Infectious Diseases M.D. Office Visit 03/12/2015 1:40p [facility] Ciro Yip, 27935 A04.7 Infectious Diseases M.D. N18.6 Z99.2 Office Visit 01/28/2015 12:22p [facility], Alonzo Gtz, 60171 M10.00 Hospitalists MShivamDShivam A41.9 N18.6 E11.22 Office Visit 01/27/2015 12:21p [facility], Alonzo Gtz, 79042 N18.6 Hospitalists MAdilson A41.9 M10.00 E11.22 Office Visit 01/26/2015 12:20p [facility], Alonzo Gtz, 48556 N18.6 Hospitalists MShivamDShivam A41.9 M10.00 E11.22 Office Visit 01/14/2015 12:46p [facility], Alonzo Gtz, 29760 N18.6 Hospitalists M.Milan A04.7 A41.9 Office Visit 01/13/2015 12:45p [facility], Delvin Thompson M.D. 30071 N18.6 Hospitalists A04.7 A41.9 Office Visit 2014 9:49a [facility], [place] [address] A04.7 Hospitalists N18.6 I50.30 Office Visit 12/21/2014 9:48a [facility], [place] [address] A04.7 Hospitalists N18.6 I50.30 Office Visit 12/20/2014 9:47a [facility], Gail Coyle, N.P. 96658 K57.32 Hospitalists A04.7 N18.6 I50.30 Office Visit 09/04/2014 2:01p [facility], Delmi Woodard, 76397 790.7 Hospitalists MShivamDShivam 038.9 585.6 250.00 Office Visit 09/03/2014 2:01p [facility], Delmi Shepardhn, 34989 790.7 Hospitalists M.D. 038.9 585.6 250.00 Office Visit 09/02/2014 2:00p [facility], Delmi Shepardhn, 41218 790.7 Hospitalists M.DShivam 038.9 585.6 250.00 Office Visit 09/01/2014 10:37a [facility] Ciro Yip, 08669 780.60 Infectious Diseases M.Milan 790.7 041.49 585.6 250.00 V45.11 Office Visit 09/01/2014 1:59p [facility], [place] [address] 599.0 Hospitalists 038.9 585.6 250.00 Office Visit 08/31/2014 1:58p [facility], Garrett Ray, 12679 599.0 Hospitalists N.P. 038.9 585.6 250.00 Office Visit 03/10/2014 11:28a [facility], Garrett Ray, 94134 584.9 Hospitalists N.P. 276.69 401.9 Office Visit 03/09/2014 11:27a [facility], Michelle Quiroga, 62871 584.9 Hospitalists N.P. 276.69 401.9 Office Visit 03/08/2014 11:26a [facility], Michelle Quiroga, 23726 584.9 Hospitalists N.P. 276.69 401.9 Office Visit 02/10/2014 6:36p [facility], Moises Kaur, 90077 786.50 Hospitalists M.DShivam 285.9 585.9 401.9 Office Visit 02/09/2014 6:35p [facility], Moises Kaur, 00485 786.50 Hospitalists M.D. 585.9 285.9 401.9 Office Visit 10/12/2013 2:36p [facility], Carmelo Brenner 04257 428.0 Hospitalists Warren Juares 250.00 496 401.9 Office Visit 10/11/2013 2:33p [facility], Vickie Lomax, 95137 428.30 Hospitalists 401.9 250.00 496 Plan of Care Future Appointment(s):09/03/2017 10:45 am - Tova Pérez M.D. at [facility].08/13/2017 - Tova Pérez M.D.S52.125D Nondisp fx of head of jh ibarra, subs for hany fx w [facility] healNew Xrays:Elbow Left 2 VWSFollow up: Follow up: 3-4 jrtnyS75.512A Sprain of carpal joint of left wrist, initial encounter
--- NOTE | 2017-08-23 22:33 | ED ---
Abdominal Pain/Male - HPI Summary HPI Summary: Pt is a 76 y/o M c/o bowel changes in recent days and abd pain onsetting earlier today, but resolving HUMAN RELATIONS MANAGER. Associated Sx: Weakness. Denies: N/V, dizziness. PMHx: Was on blood thinners but took him off due to bleeding, Recieves Heparin and Dialysis 3 days a week, HTN. PSHx: Broke elbow 3 weeks ago - History of Current Complaint Chief Complaint: EDAbdPain Stated Complaint: ABD PAIN/BLOOD IN STOOL Time Seen by Provider: 08/23/17 22:19 Hx Obtained From: Patient, Family/Scientific Software Engineer Onset/Duration: Sudden Onset - abd pain, Lasting Hours - abd pain, Lasting Days - stool changes, Resolved - abd pain Timing: Intermittent - abd pain Severity Initially: Mild Severity Currently: None Pain Intensity: 3 Pain Scale Used: 0-10 Numeric Location: Epigastric Associated Signs And Symptoms: Positive: Blood in Stool - melena. Negative: Fever - Allergies/Home Medications Allergies/Adverse Reactions: Allergies Allergy/AdvReac Type Severity Reaction Status Date / Time lisinopril Allergy Unknown Verified 08/23/17 22:23 Reaction Details olmesartan [From Benicar] Allergy Unknown Verified 08/23/17 22:24 Reaction Details PMH/Surg Hx/FS Hx/Imm Hx Previously Healthy: No Endocrine/Hematology History: Reports: Hx Diabetes - diet control Cardiovascular History: Reports: Hx Congestive Heart Failure, Hx Coronary Artery Disease, Hx Hypertension, Hx Myocardial Infarction, Hx Peripheral Vascular Disease, Other Cardiovascular Problems/Disorders - Carotid stenosis, PVD, BBB, afib Respiratory History: Reports: Hx Chronic Obstructive Pulmonary Disease (COPD) GI History: Reports: Hx Gastroesophageal Reflux Disease, Hx Gastrointestinal Bleed, Other GI Disorders - chronic diarrhea History: Reports: Hx Dialysis - HD, Other Problems/Disorders - ESRD Musculoskeletal History: Reports: Hx Arthritis, Hx Back Problems - pain, Hx Gout Sensory History: Reports: Hx Cataracts, Hx Contacts or Glasses, Hx Glaucoma Denies: Hx Hearing Aid Opthamlomology History: Reports: Hx Cataracts, Hx Contacts or Glasses, Hx Glaucoma - Surgical History Surgery Procedure, Year, and Place: APPENDECTOMY, right carotid endarterectomy, bilateral cataracts - Immunization History Date of Influenza Vaccine: 09/2016 Infectious Disease History: No Infectious Disease History: Reports: Hx Clostridium Difficile, Hx Shingles Denies: Hx of Known/Suspected MRSA, Traveled Outside the [place] in Last 30 Days - Family History Known Family History: Positive: Cardiac Disease, Diabetes - Social History Occupation: Retired Lives: With Family Alcohol Use: None Alcohol Amount: quit 20 yrs ago Hx Substance Use: No Substance Use Type: Reports: None Hx Tobacco Use: Yes Smoking Status (MU): Former Smoker Type: Cigarettes Amount Used/How Often: QUIT 1989 Review of Systems Negative: Fever Positive: Abdominal Pain. Negative: Vomiting, Nausea Positive: other - melena Neurological: Other - neg: dizziness Positive: Weakness All Other Systems Reviewed And Are Negative: Yes Physical Exam - Summary Physical Exam Summary: Appearance: Well-appearing, Well-nourished, lying in bed comfortably Skin: Warm, dry, no obvious rash Eyes: sclera anicteric, conjunctival pallor ENT: mucous membranes moist, pharynx appears normal Neck: Supple, nontender Respiratory: Clear to auscultation, no signs of respiratory distress Cardiovascular: Normal S1, S2. No murmurs. Normal distal pulses in tibial and radial bilaterally. Tachycardia, hypotension Abdomen: Soft, nontender, normal active bowel sounds present Musculoskeletal: Normal, Strength/ROM Intact Neurological: A&Ox3, awake and alert, mentation is normal, speech is fluent and appropriate Psychiatric: affect is normal, does not appear anxious or depressed Rectal: melena, GUIAC positive Triage Information Reviewed: Yes Vital Signs On Initial Exam: Initial Vitals Temp Pulse Resp BP Pulse Ox 97.9 F 115 22 103/68 97 08/23/17 22:24 08/23/17 22:24 08/23/17 22:24 08/23/17 22:24 08/23/17 22:24 Vital Signs Reviewed: Yes Diagnostics - Vital Signs Vital Signs Temp Pulse Resp BP Pulse Ox 08/23/17 22:24 97.9 F 115 22 103/68 97 - Laboratory Result Diagrams: 08/23/17 22:39 08/23/17 22:39 Lab Statement: Any lab studies that have been ordered have been reviewed, and results considered in the medical decision making process. Abdominal Pain Fem Course/Dx - Diagnoses Provider Diagnoses: ESRF (end stage renal failure), UGI bleed, Renal failure - Provider Notifications Discussed Care Of Patient With: Vickie Lomax Time Discussed With Above Provider: 11:12 Instructed by Provider To: Admit As Inpatient - Provider discussed further care of pt and accepted admit Discharge - Sign-Out/Discharge Documenting (check all that apply): Patient Departure - Discharge Plan Condition: Critical Disposition: ADMITTED TO [facility] - Billing Disposition and Condition Condition: CRITICAL Disposition: Admitted to [facility]
[2017-08-23 23:05] LABS: ABS Basophils 0.1 10^3/ul (0-0.2); ABS Eosinophils 0 10^3/ul (0-0.6); ABS Lymphocytes 1.6 10^3/ul (1.0-4.8); ABS Neutrophils 7.3 10^3/ul (1.5-7.7); ABS Nucleated RBC 0 10^3/ul; Eosinophil % 0.5 % (0-6); Hematocrit 20 % (42-52); Hemoglobin 6.5 g/dl (14.0-18.0); Lymphocyte % 15.7 % (25-47); Mean Corpuscular HGB Conc 33 g/dl (31-36); Mean Corpuscular Hemoglobin 36 pg (27-31); Mean Corpuscular Volume 110 fL (80-94); Mean Platelet Volume 7.1 um3 (7.4-10.4); Nucleated Red Blood Cells % 0.1; Platelet Count 154 10^3/ul (150-450); Red Blood Count 1.82 10^6/ul (4.00-5.40); Red Cell Distribution Width 17 % (10.5-15); White Blood Count 9.9 10^3/ul (3.5-10.8)
[2017-08-23] MEDS: Pantoprazole IV* 80 MG in NS 0.9% 250 ML* 250 ML IV SCH (23:18)
[2017-08-23] MEDS ORDERED: Iodixanol* (CONTRAST) 320 MG/ML 100 ML SDV IV ONE (23:21)
[2017-08-24] MEDS ORDERED: Al Hydrox/Mg Hydrox/Simet LIQ* 30 ML UDC PO PRN (00:14)
[2017-08-24] MEDS ORDERED: Ondansetron INJ* 2 MG/ML VIAL IV PRN (00:14)
[2017-08-24] MEDS ORDERED: Acetaminophen TAB* 325 MG PO PRN (00:14)
[2017-08-24 00:20] LABS: INR 0.94 (0.77-1.02)
[2017-08-24] MEDS: Pantoprazole IV* 80 MG in NS 0.9% 250 ML* 250 ML IV SCH ×3 (01:28→21:36)
--- NOTE | 2017-08-24 03:36 | HP ---
CC: Michael Aguirre MD * HISTORY AND PHYSICAL: DATE OF ADMISSION: 08/24/17 TIME OF EVALUATION: 0015. PRIMARY CARE PHYSICIAN: Michael Aguirre MD CHIEF COMPLAINT: Black stools. HISTORY OF PRESENT ILLNESS: This is a 76-year-old male with past medical history of microscopic colitis, history of a GI bleed, who is also on aspirin and budesonide, who presents to the emergency room with black, tarry, loose stools for the past 2 to 3 days. He states he has had off and on lower abdominal pain worse after a bowel movement. Currently, he is pain-free. Normally, he has 1 bowel movement per day, but today, he has had several loose black stools. No nausea, vomiting. He has had poor appetite for the past 2 to 3 days. No fevers. He is always cold. They state he is not a candidate for colonoscopy because he is high risk for perforation due to his microscopic colitis. He denies any lightheadedness. No dizziness. He does feel short of breath. No chest pain. He has not been on anticoagulation other than the aspirin, Pletal, and also the budesonide for his microscopic colitis. He did fall 3 weeks ago where he broke his left arm. He has had chronic wounds and prolonged wound mostly on his left upper extremity. Otherwise, remaining review of systems is negative. The patient was following with Dr. Rosales. He is now following his IMMIGRATION SERVICES OFFICER. In the emergency room, the patient had labs, imaging. He was started on a Protonix drip and referred to the hospitalist service for further evaluation. PAST MEDICAL HISTORY: 1. End-stage renal disease on dialysis, Thursday, Thursday, and Thursday. 2. History of atrial fibrillation on anticoagulation due to a GI bleed. 3. History of a GI bleed in January 2016. 4. History of recurrent C. diff, status post fecal transplant. 5. History of hypertension. 6. Diet-controlled diabetes. 7. History of diastolic heart failure with preserved EF. 8. COPD. 9. CAD status post AL. 10. History of microscopic colitis on budesonide. 11. History of chronic microcytic anemia. 12. Peripheral vascular disease. 13. History of carotid endarterectomy. 14. History of cataract surgery. 15. Appendectomy. 16. Orchiectomy. 17. Fistula placement. 18. History of fecal transplant. MEDICATIONS: Per medication reconciliation: 1. Pletal 100 mg p.o. b.i.d. 2. Symbicort 2 puffs inhaled b.i.d. 3. Budesonide 9 mg p.o. daily. 4. Lipitor 10 mg daily. 5. Aspirin 81 mg daily. 6. Allopurinol 200 mg p.o. daily. 7. Midodrine 5 mg daily before dialysis. 8. Metoprolol tartrate 12.5 mg p.o. b.i.d. 9. Metolazone 2.5 mg p.o. every other day. 10. Methylcellulose 500 mg daily. 11. Loratadine 10 mg daily. 12. Nephro-Chrystal 1 tab p.o. daily. 13. Requip tab 0.25 mg p.o. b.i.d. 14. Demadex 40 mg p.o. b.i.d. 15. Renvela 2400 p.o. t.i.d. with meals. 16. Omeprazole 20 mg p.o. daily. ALLERGIES: LISINOPRIL and LOSARTAN. SOCIAL HISTORY: The patient lives at home with his , Andra, who is his healthcare proxy. He quit smoking back in the , 30-pack year history, quit drinking 10 years ago. He ambulates with a walker and does still drive, independent of his ADLs. Code status, he did bring his MOLST form and he has confirmed he remains a DNR/DNI. FAMILY HISTORY: Two brothers with colon cancer. Father at 75 with coronary artery disease. Mother age at 94 from old age. REVIEW OF SYSTEMS: A 14-point review of systems as mentioned in the HPI. Otherwise, negative. PHYSICAL EXAMINATION GENERAL: Some intermittent conversational dyspnea. His is at the bedside. VITAL SIGNS: Temp 97.9, pulse rate 96, respiratory rate 22, oxygen saturation 97 % on room air, blood pressure 121/49. HEENT: Head: Normocephalic. Pupils are equal and reactive. Conjunctivae are pale. Oropharynx: Mucous membranes are dry. He appears to have aphthous ulcer on the posterior oropharynx. NECK: Supple. No lymphadenopathy. RESPIRATORY: Diminished breath sounds. No wheezing, rhonchi, or rales. CARDIAC: Regular rate and rhythm. Soft systolic murmur heard throughout. ABDOMEN: Hyperactive bowel sounds, morbidly obese. Soft, nontender, nondistended. EXTREMITIES: Trace pretibial edema. +1 DPs. NEUROLOGICAL: Alert and oriented x3. No gross focal neurologic deficits. DERM: The patient with a chronic left upper extremity wound with a necrotic, scabbed over lesion 3 to 4 cm with no drainage or erythema. He has a much smaller healing wound on his right upper extremity with minimal necrotic tissue. LABORATORY DATA: White count 9.9, hemoglobin 6.5, hematocrit 20, platelets 154. INR is 0.94. Sodium 137, potassium 5.2, chloride 95, bicarb 25, BUN 103, creatinine 8.65. Lactic acid 2.8. Troponin 0.09. ASSESSMENT AND PLAN: This is a 76-year-old male with a past medical history of microscopic colitis, on budesonide; coronary artery disease, on aspirin; peripheral vascular disease, on Pletal, who presents to the emergency room with 2 to 3 days of melena, found to have a drop in his H and H. 1. Gastrointestinal bleed. Assessment: The patient is hemodynamically stable. Suspect this is an upper GI bleed, gastritis or possible gastric ulcer secondary to baby aspirin, Pletal, and potentially budesonide. Plan: We will admit him to the ICU for overnight observation to monitor any signs of deterioration. We will follow up on his CAT scan that was ordered. He is going to get 2 units of blood. I am going to hold his oral diuretics and give him 80 of Lasix IV. Posttransfusion, contact GI in the morning for discussion of EGD and keep him on a clear liquid diet. We will also keep him on a PPI drip for now. 2. Chronic medical problems. Heart failure and coronary artery disease. I am going to hold his torsemide, metolazone for now in the setting of appearing dry , getting blood. I am going to hold his aspirin and Pletal in the setting of his GI bleed. Depending on his results of GI and possible EGD, we will need to weigh the risks versus benefits of further management of his coronary disease. Continue his metoprolol. 3. End-stage renal disease, on hemodialysis. We will contact Nephrology in the morning regarding the patient requiring hemodialysis in the morning. 4. Microscopic colitis. We will continue his budesonide for now and follow up with GI to determine utility of continuing this in the setting of his GI bleeding. 5. Hyperlipidemia. Continue Lipitor. 6. Chronic obstructive pulmonary disease. We will order Dulera in place of his Symbicort, albuterol as needed. 7. Chronic wounds. We will order wound care consult for further evaluation, possible followup as an outpatient. 8. DVT prophylaxis. The patient scores high risk. We will place him on SCDs. 9. FEN. Place the patient on clear liquid diet. 10. Code status. The patient is a DNR/DNI. This was confirmed. PATIENT TIME: Greater than 60 minutes were spent doing the history and physical , more than half the time was direct patient contact and critical care time requiring ICU admission and blood transfusion. [id number]/[facility] #: [id number] HASMUKH
[2017-08-24] MEDS ORDERED: Furosemide IV* 10 MG/ML 10 ML VIAL (100 MG) IV ONE (04:00)
[2017-08-24 06:52] LABS: ABS Basophils 0 10^3/ul (0-0.2); ABS Eosinophils 0.1 10^3/ul (0-0.6); ABS Lymphocytes 1.8 10^3/ul (1.0-4.8); ABS Monocytes 0.9 10^3/ul (0-0.8); ABS Neutrophils 7.4 10^3/ul (1.5-7.7); ABS Nucleated RBC 0 10^3/ul; Eosinophil % 0.5 % (0-6); Hematocrit 21 % (42-52); Hemoglobin 7.2 g/dl (14.0-18.0); Lymphocyte % 17.6 % (25-47); Mean Corpuscular HGB Conc 35 g/dl (31-36); Mean Corpuscular Hemoglobin 37 pg (27-31); Mean Corpuscular Volume 105 fL (80-94); Mean Platelet Volume 7.5 um3 (7.4-10.4); Nucleated Red Blood Cells % 0; Platelet Count 136 10^3/ul (150-450); Red Blood Count 1.96 10^6/ul (4.00-5.40); Red Cell Distribution Width 21 % (10.5-15); White Blood Count 10.2 10^3/ul (3.5-10.8)
[2017-08-24 07:08] LABS: EGFR Non-African American 5.8 (>60)
--- NOTE | 2017-08-24 07:39 | RAD ---
Indication: Abdominal pain. Contrast: Administered 141.3 ml of VISAPAQUE 320 mg/ml CT of the abdomen and pelvis was performed after oral and IV contrast administration. Coronal and sagittal reconstructed images were obtained. The lung bases demonstrate some scarring and fibrosis in the left costophrenic angle. No pleural fluid is identified although mild pleural thickening is noted. The heart is of normal size without evidence of pericardial effusion. Coronary artery calcifications are noted. The liver is normal in size. No focal lesions or intrahepatic duct dilatation is noted. The gallbladder is contracted. No gallstones are identified. The common duct measures 10 mm with no evidence of distal calculus or mass. The pancreas demonstrates no mass or pancreatic duct dilatation. The spleen is normal in size. No focal lesions are identified. No adrenal masses are noted. The kidneys demonstrate renal atrophy without evidence of hydronephrosis. Aorta and inferior vena cava are unremarkable. Incidentally noted is a duodenal diverticulum. CT of the pelvis demonstrates diverticulosis without definite evidence of diverticulitis. Urinary bladder is partially collapsed. No evidence of abnormal adenopathy is noted. IMPRESSION: Contracted gallbladder. Findings consistent with end-stage renal disease. The common duct measures 10 mm without distal calculus or mass. Diverticulosis without evidence of diverticulitis.
[2017-08-24] MEDS ORDERED: CMCS:Midodrine (NF) 5 MG TAB PO SCH (09:00)
[2017-08-24] MEDS: Sevelamer TAB* 800 MG PO SCH ×3 (09:29→17:44)
[2017-08-24] MEDS: Mometasone/Formoter 200/5 MDI INH SCH ×2 (09:41→20:28)
[2017-08-24] MEDS ORDERED: Epoetin Alfa* 10,000 UNITS/ML VIAL IV ONE (13:00)
[2017-08-24] MEDS: Metoprolol Tartrate TAB* 25 MG PO SCH ×2 (13:50→21:03)
[2017-08-24] MEDS: Ropinirole TAB* 0.5 MG TAB PO SCH ×2 (13:50→21:02)
[2017-08-24] MEDS: Cetirizine* 10 MG TAB PO SCH (13:50)
[2017-08-24] MEDS: Allopurinol TAB* 100 MG PO SCH (14:20)
[2017-08-24] MEDS: CMCS:Midodrine (NF) 5 MG TAB PO SCH (14:20)
[2017-08-24] MEDS: Atorvastatin* 10 MG TAB PO SCH (14:20)
[2017-08-24] MEDS: CMC:Budesonide CAP(NF) 3 MG PO SCH (14:20)
[2017-08-24] MEDS ORDERED: fentaNYL* 50 MCG/ML 2 ML VIAL (100 MCG VIAL) ONE (15:01)
[2017-08-24] MEDS ORDERED: Midazolam* 1 MG/ML 10 ML VIAL (10 MG) ONE (15:02)
--- NOTE | 2017-08-24 15:43 | PN ---
Hospitalist Progress Note Date of Service: 08/24/17 Follow up on initial H&P from this morning. Patient states breathing is improved , denies chest or abdominal pain, no bleeding reported. Currently having HD in his room in the ICU. Plan with GI to have upper endoscopy at the bedside today then re-evaluate POC based on findings/GI recs. Coordinated with staff and patient's .
[2017-08-24] MEDS ORDERED: PEG 3000 GI LAVAGE* 1 GALLON PO ONE (17:00)
--- NOTE | 2017-08-24 22:05 | CONS ---
CC: Dr. Lomax; Dr. Aguirre; Dr. Shahana Ferreira * GASTROENTEROLOGY CONSULTATION NOTE: DATE OF CONSULT: August 24, 2017 HOSPITAL PROVIDER: Vickie Lomax MD PRIMARY CARE PHYSICIAN: Michael Aguirre MD REASON FOR CONSULT: Melena. HISTORY OF PRESENT ILLNESS: Patel is a very pleasant 76-year-old gentleman who presents with a past medical history of ESRD, atrial fibrillation, CAD, COPD, DM , PVD, microscopic colitis on budesonide daily and previous history of GI bleeding. He has been on multiple anticoagulants but have been discontinued due to GI bleeding. He is currently on a baby ASA and Pletal daily. He presented to the emergency room yesterday evening with melena over the past 2 days per the patient's . He has been complaining of intermittent lower abdominal pain which worsens after a bowel movement. He currently states he feels well though. Denies any bright red blood per rectum. He had a previous colonoscopy in [address] Rosales revealing small polyps and microscopic colitis. He denies any chest pain, lightheadedness, dizziness and shortness of breath at this time. He has received 2 units of packed red blood cells which has helped him feel better overall. Currently, he is on a Protonix drip for possible upper gastrointestinal bleeding. His last upper endoscopy was performed in January [address] Marina and was unrevealing for cause of his GI bleeding at that time. Of note, has had 2 brothers with colon cancer. PAST MEDICAL HISTORY: 1. End-stage renal disease, on hemodialysis. 2. Atrial fibrillation, not on anticoagulation due to gastrointestinal bleeding. 3. Last gastrointestinal bleed in January 2016. 4. History of recurrent C. diff status post fecal transplant. 5. Hypertension. 6. Diet controlled diabetes. 7. Diastolic heart failure with preserved ejection fraction. 8. COPD. 9. Coronary artery disease status post MT. 10. Microscopic colitis on budesonide. 11. Chronic microcytic anemia. 12. Peripheral vascular disease. PAST SURGICAL HISTORY: 1. Carotid endarterectomy. 2. Cataract surgery. 3. EGD in January 2016. 4. Colonoscopy in 2009. 5. Appendectomy. 6. Orchectomy. 7. Fistula placement. 8. Fecal transplant. MEDICATIONS: 1. Pletal. 2. Symbicort. 3. Budesonide. 4. Lipitor. 5. Aspirin. 6. Allopurinol. 7. Midodrine. 8. Metoprolol tartrate. 9. Metolazone. 10. Methylcellulose. 11. Loratadine. 12. Nephro-Chrystal. 13. Requip. 14. Demadex. 15. Renvela. 16. Omeprazole. ALLERGIES: LISINOPRIL and LOSARTAN. FAMILY HISTORY: Two brothers with colon cancer. SOCIAL HISTORY: He currently lives at home with his . He quit smoking in the , but did have a 30-pack year history. He ambulates with a walker. REVIEW OF SYSTEMS: Review of systems on a 14-point scale has been reviewed. All pertinent positives and negatives have been noted above in the HPI. PHYSICAL EXAM: Vital Signs: Temperature 98.4, pulse 94, respirations 22, is 95 % on 2 L nasal cannula, blood pressure 90/46. Generally, the patient is alert and oriented x3, in no acute distress, well nourished. HEENT: Normocephalic, atraumatic. Extraocular muscles intact. Anicteric sclerae bilaterally. Neck is supple. Cardiovascular: Irregular rhythm. Regular rate. Pulmonary: Clear to auscultation bilaterally. Abdomen: Obese. Positive bowel sounds. Soft, nontender, nondistended. No rebound, guarding, or rigidity. No hepatosplenomegaly. Extremities: No clubbing, cyanosis or edema. Several ecchymotic areas due to recent fall. Neurological: No gross focal deficits are appreciated. DIAGNOSTIC STUDIES/LAB DATA: WBC is 10.2, hemoglobin 7.2, hematocrit 21, platelets 136. INR 0.94. PTT 25.6. Sodium 136, potassium 5.6, chloride 95, CO2 26, anion gap 15, BUN 109, creatinine 8.94, glucose 116, lactic acid 1.8, calcium 8.9. Total bilirubin 0.50, AST 14, ALT 11, alkaline phosphatase 79. Troponin 0.09. Total protein 5.8, albumin 3.1. Globulin 2.7. ASSESSMENT AND PLAN: Mr. Brown is a very pleasant 76-year-old male with multiple comorbidities including peripheral vascular disease, coronary artery disease status post MT, diabetes mellitus, atrial fibrillation, not on anti- coagulation due to history of GI bleeding and currently on baby aspirin and Pletal therapy who presented with a 2-day history of melena. He also has a history of hypertension, diet controlled diabetes, COPD and diastolic heart failure. Additionally, he has a history of microscopic colitis last seen on colonoscopy in 2009 and he is on daily budesonide therapy for his symptoms. His last endoscopy was performed by Dr. Marina in January 2016 which was unrevealing for cause of gastrointestinal bleeding at that time. His bleeding subsided and he was taken off anticoagulation due to risk of GI bleeding. Yesterday evening, he presented to the emergency room with complaints of recurrent melena. His aspirin and Pletal were subsequently held on admission to the intensive care unit. Gastroenterology has been consulted for further evaluation. Given the patient's history and significant need for some form of anticoagulation due to co-morbidities, we will perform an upper endoscopy today to rule out any causes of upper intestinal bleeding. If this is unrevealing, we will proceed with the colonoscopy tomorrow. The patient and the patient's are in agreement with this. If the patient's colonoscopy is unremarkable as the cause for GI bleeding, I would recommend the video capsule endoscopy to further evaluate for any lesions in the small bowel in order to complete the workup. The patient will remain n.p.o. for upper endoscopy today. Further recommendations will be provided as the patient's clinical course progresses. Thank you, Dr. Lomax, for allowing us to participate in the care of your patient. If you should have any further questions or concerns, please do not hesitate to contact us. [id number]/[facility] #: [id number] HASMUKH
[2017-08-25 07:03] LABS: Hematocrit 22 % (42-52); Hemoglobin 7.6 g/dl (14.0-18.0); Mean Corpuscular HGB Conc 35 g/dl (31-36); Mean Corpuscular Hemoglobin 35 pg (27-31); Mean Corpuscular Volume 102 fL (80-94); Mean Platelet Volume 7.4 um3 (7.4-10.4); Platelet Count 121 10^3/ul (150-450); Red Blood Count 2.15 10^6/ul (4.00-5.40); Red Cell Distribution Width 22 % (10.5-15); White Blood Count 7.9 10^3/ul (3.5-10.8)
[2017-08-25 07:34] LABS: EGFR Non-African American 9.8 (>60)
[2017-08-25 07:49] LABS: ABS Basophils 0 10^3/ul (0-0.2); ABS Eosinophils 0.1 10^3/ul (0-0.6); ABS Lymphocytes 1.3 10^3/ul (1.0-4.8); ABS Monocytes 0.9 10^3/ul (0-0.8); ABS Neutrophils 5.5 10^3/ul (1.5-7.7); ABS Nucleated RBC 0 10^3/ul; Lymphocyte % 16.2 % (25-47); Nucleated Red Blood Cells % 0.2
[2017-08-25] MEDS: Pantoprazole IV* 80 MG in NS 0.9% 250 ML* 250 ML IV SCH ×2 (08:13→19:47)
[2017-08-25] MEDS: Allopurinol TAB* 100 MG PO SCH (08:42)
[2017-08-25] MEDS: Sevelamer TAB* 800 MG PO SCH ×3 (08:42→16:41)
[2017-08-25] MEDS: Cetirizine* 10 MG TAB PO SCH (08:42)
[2017-08-25] MEDS: Atorvastatin* 10 MG TAB PO SCH (08:42)
[2017-08-25] MEDS: Metoprolol Tartrate TAB* 25 MG PO SCH ×2 (08:42→20:22)
[2017-08-25] MEDS: Mometasone/Formoter 200/5 MDI INH SCH ×2 (08:51→19:58)
[2017-08-25] MEDS: CMC:Budesonide CAP(NF) 3 MG PO SCH (09:12)
[2017-08-25] MEDS: Ropinirole TAB* 0.5 MG TAB PO SCH ×2 (09:13→20:22)
--- NOTE | 2017-08-25 11:09 | PRO ---
CC: Dr. Aguirre; Dr. Vickie Lomax; Dr. Shahana Ferreira GASTROENTEROLOGY OPERATIVE REPORT: DATE OF PROCEDURE: 08/24/17 OPERATIVE PROCEDURE: Esophagogastroduodenoscopy to the third portion of duodenum. ELECTRO MECHANICAL SOLAR TECHNICIAN: Shahana Ferreira DO ANESTHESIA: 1. Midazolam 5 mg IV. 2. Fentanyl 50 mcg IV. HISTORY OF PRESENT ILLNESS: Patel is a very pleasant 76-year-old male who presents with a history of GI bleeding, atrial fibrillation and several other co -morbidities. Due to his previous history of GI bleeding, the patient was switched over to low-dose aspirin and Pletal therapy and has been doing well over the last [id number]. He presented yesterday to the emergency room with an episodes of melena per his over the last two days. He was admitted to the intensive care unit for GI bleeding and further evaluation. Currently, he is hemodynamically stable. His presented with a hemoglobin was 6.5 and he has received his second unit of packed red blood cells at this time. Of note, his last EGD in 01/2016 was unremarkable for etiology of GI bleeding. PREOPERATIVE DIAGNOSES: 1. Melena in the setting of ASA and Pletal therapy. 2. Previous history of gastrointestinal bleeding. POSTOPERATIVE DIAGNOSES: 1. Normal-appearing first, second, and third portion of the duodenum. 2. Mild antral gastritis with a few questionable small erosions. 3. Mosaic-tile like appearance of the gastric wall suggestive of mild portal gastropathy. 4. Irregular-appearing Z-line at 43 cm from the incisors. 5. Normal mid and proximal esophagus. RECOMMENDATIONS: 1. We will proceed forward with a colonoscopy tomorrow to further evaluate of the patient's cause of anemia and melena. This was discussed with patient's and she is agreeable to this as well. 2. The patient will remain on a clear liquid diet and take a colonoscopy prep tonight. If colonoscopy is unrevealing, he will need a video capsule endoscopy to evaluate for any lesions in the small bowel. 3. Continue to monitor Hgb and transfuse prbcs prn. 4. Discussed results with primary team. DESCRIPTION OF PROCEDURE: Esophagogastroduodenoscopy was explained in detail to the patient. The risks, benefits, complications, alternatives, possibilities of missed lesions were explained and understood. Complications included, but were not limited to reaction to anesthesia, aspiration, increased risk of bleeding, infection and perforation. All questions were answered. The patient and the patient's demonstrated understanding of the conversation. Informed consent was obtained. Next, the patient remained in the intensive care unit and the travel gastrointestinal cart was brought to the intensive care unit. Blood pressure, cardiac, and oxygen monitors were applied. The patient was found to be a fit candidate for moderate anesthesia. After adequate IV sedation was achieved, a bite-block was placed. Next, a standard adult Olympus endoscope was inserted per os under direct visualization to the first, second, and third portion of the duodenum. These areas were grossly unremarkable appearing. Further withdrawal into the antrum of the stomach revealed some very mild erythema with questionable erosions. CLOtest was not performed at this time due to possibility of GI bleeding current anticoagulative therapy. On retroflexion, the patient had a normal gastric cardia sling. There was mild mosaic-tile appearance of the gastric wall consistent with mild portal gastropathy. Withdrawal of the endoscope into the distal esophagus revealed an irregular-appearing Z-line at 43 cm from the incisors. The rest of the tubular esophagus was normal appearing. Air was then removed from the patient, endoscope was removed from the patient. The patient tolerated the procedure well. There were no immediate complications. After a period of observation, the patient remained in the intensive care unit for further evaluation and treatment. Thank you, Dr. Vickie Lomax, for allowing us to participate in the care of your patient. If you should have any further questions or concerns, please do not hesitate to contact us. [id number]/[facility] #: [id number] HASMUKH
[2017-08-25] MEDS ORDERED: Midazolam* 1 MG/ML 10 ML VIAL (10 MG) ONE (14:08)
[2017-08-25] MEDS ORDERED: fentaNYL* 50 MCG/ML 2 ML VIAL (100 MCG VIAL) ONE (14:08)
[2017-08-25 15:54] LABS: Hematocrit 23 % (42-52); Hemoglobin 7.6 g/dl (14.0-18.0)
--- NOTE | 2017-08-25 16:06 | PN ---
Subjective Date of Service: 08/25/17 Interval History: Patient seen and examined prior to colonoscopy. States he was up all night 2/2 prep, did not get much sleep, denies abdominal pain, no n/v, no chest pain. No acute SOB. at bedside. Objective Active Medications: Acetaminophen (Tylenol Tab*) 650 mg PO Q4H PRN PRN Reason: FEVER/PAIN Al Hydrox/Mg Hydrox/Simethicone (Maalox Plus*) 30 ml PO Q6H PRN PRN Reason: INDIGESTION Allopurinol (Zyloprim Tab*) 200 mg PO DAILY [facility] Last Admin: 08/25/17 08:42 Dose: Not Given Atorvastatin Calcium (Lipitor*) 10 mg PO DAILY [facility] Last Admin: 08/25/17 08:42 Dose: Not Given Budesonide (Budesonide Cap(Nf)) 9 mg PO DAILY [facility]; Protocol Last Admin: 08/25/17 09:12 Dose: 9 mg Cetirizine HCl (Zyrtec*) 10 mg PO DAILY [facility] Last Admin: 08/25/17 08:42 Dose: Not Given Pantoprazole Sodium 80 mg/ (Sodium Chloride) 250 mls @ 25 mls/hr IV Q10H [facility] Last Admin: 08/25/17 08:13 Dose: 25 mls/hr Metoprolol Tartrate (Lopressor Tab*) 12.5 mg PO BID [facility] Last Admin: 08/25/17 08:42 Dose: Not Given Midodrine (Midodrine (Nf)) 5 mg PO MoWeFr@0900 [facility]; Protocol Last Admin: 08/24/17 14:20 Dose: Not Given Mometasone Furoate/Formoterol Fumar (Dulera 200/5 Mdi*) 2 puff INH BID [facility] Last Admin: 08/25/17 08:51 Dose: 2 puff Ondansetron HCl (Zofran Inj*) 4 mg IV Q4H PRN PRN Reason: NAUSEA/VOMITING Ropinirole HCl (Requip Tab*) 0.25 mg PO BID [facility] Last Admin: 08/25/17 09:13 Dose: 0.25 mg Sevelamer Carbonate (Renvela Tab*) 2,400 mg PO TID WITH MEALS [facility] Last Admin: 08/25/17 11:55 Dose: Not Given Vital Signs - 8 hr 08/25/17 08/25/17 08/25/17 07:56 08:00 08:01 Temperature 98.8 F Pulse Rate Respiratory 18 99 Rate Blood Pressure 75/54 (mmHg) O2 Sat by Pulse Oximetry 08/25/17 08/25/17 08/25/17 08:03 08:10 08:12 Temperature Pulse Rate 93 92 Respiratory 28 14 26 Rate Blood Pressure 87/44 76/42 113/53 (mmHg) O2 Sat by Pulse 98 98 Oximetry 08/25/17 08/25/17 08/25/17 08:31 08:54 09:00 Temperature Pulse Rate 88 90 88 Respiratory 39 18 25 Rate Blood Pressure 108/44 (mmHg) O2 Sat by Pulse 94 100 100 Oximetry 08/25/17 08/25/17 08/25/17 09:01 09:31 10:00 Temperature Pulse Rate 87 88 87 Respiratory 28 15 16 Rate Blood Pressure 121/66 101/51 (mmHg) O2 Sat by Pulse 93 100 97 Oximetry 08/25/17 08/25/17 08/25/17 10:01 10:31 11:00 Temperature Pulse Rate 86 94 87 Respiratory 16 20 15 Rate Blood Pressure 101/55 127/70 (mmHg) O2 Sat by Pulse 97 94 97 Oximetry 08/25/17 08/25/17 08/25/17 11:01 11:31 11:50 Temperature Pulse Rate 86 87 Respiratory 15 15 16 Rate Blood Pressure 117/60 129/51 (mmHg) O2 Sat by Pulse 100 94 Oximetry 08/25/17 08/25/17 08/25/17 12:00 12:01 12:31 Temperature 99.0 F Pulse Rate 87 86 88 Respiratory 12 19 17 Rate Blood Pressure 139/47 111/58 (mmHg) O2 Sat by Pulse 99 95 94 Oximetry 08/25/17 08/25/17 08/25/17 13:00 13:01 13:31 Temperature Pulse Rate 90 89 91 Respiratory 14 18 16 Rate Blood Pressure 128/50 135/57 (mmHg) O2 Sat by Pulse 93 97 94 Oximetry 08/25/17 08/25/17 08/25/17 14:00 14:01 14:05 Temperature Pulse Rate 89 89 88 Respiratory 31 13 8 Rate Blood Pressure 118/54 118/54 (mmHg) O2 Sat by Pulse 90 95 96 Oximetry 08/25/17 08/25/17 08/25/17 14:22 14:25 14:35 Temperature Pulse Rate 90 96 88 Respiratory Rate Blood Pressure 112/51 120/67 90/45 (mmHg) O2 Sat by Pulse 93 94 96 Oximetry 08/25/17 08/25/17 08/25/17 14:41 14:45 14:50 Temperature Pulse Rate 87 92 90 Respiratory Rate Blood Pressure 109/69 93/64 110/46 (mmHg) O2 Sat by Pulse 95 95 95 Oximetry 08/25/17 08/25/17 08/25/17 14:56 14:57 15:00 Temperature Pulse Rate 92 88 87 Respiratory 16 Rate Blood Pressure 68/39 106/48 84/45 (mmHg) O2 Sat by Pulse 97 98 99 Oximetry 08/25/17 08/25/17 08/25/17 15:01 15:06 15:10 Temperature Pulse Rate 88 90 89 Respiratory Rate Blood Pressure 102/49 104/63 (mmHg) O2 Sat by Pulse 98 91 79 Oximetry 08/25/17 15:15 Temperature Pulse Rate 85 Respiratory Rate Blood Pressure 111/55 (mmHg) O2 Sat by Pulse 97 Oximetry Oxygen Devices in Use Now: Nasal Cannula Appearance: Alert, NAD Eyes: No Scleral Icterus, PERRLA Ears/Nose/Mouth/Throat: Mucous Membranes Moist, - - edentulous Neck: NL Appearance and Movements; NL JVP, Trachea Midline Respiratory: Symmetrical Chest Expansion and Respiratory Effort, - - diminished bases Cardiovascular: NL Sounds; No Murmurs; No JVD, - - bipedal edema at basline Abdominal: NL Sounds; No Tenderness; No Distention Extremities: No Clubbing, Cyanosis Skin: No Rash or Ulcers Neurological: Alert and Oriented x 3 Nutrition: - - NPO for procedure Result Diagrams: 08/25/17 06:40 08/25/17 06:40 Microbiology and Other Data: Microbiology 08/24/17 21:55 Stool Occult Blood (LAKESHA) - Final Stool 08/24/17 01:15 Nasal Screen MRSA (PCR) - Final Nasal Mrsa Not Detected Assess/Plan/Problems-Billing Assessment: This is a 76 year old male with history of HF, CAD, ESRD on HD that presented to the ER with c/o black tarry stools, suspect for GI bleeding. - Patient Problems (1) Anemia Code(s): D64.9 - ANEMIA, UNSPECIFIED SNOMED Code(s): 953475800 Comment: - suspect acute on chronic 2/2 ESRD/Chronic disease - Status post endoscopy and colonoscopy in the last 24 hours with no identifiable source for drop in H&H and black stools - Discussed case with Dr. Marina, he does not feel a capsule procedure would be beneficial - Reached out to Dr. Hastings, will transfuse 1 unit PRBCs tonight and one tomorrow and have HD tomorrow - Downgrade from ICU (2) End stage renal disease on dialysis Code(s): N18.6 - END STAGE RENAL DISEASE; Z99.2 - DEPENDENCE ON RENAL DIALYSIS SNOMED Code(s): 359397671 Comment: - HD as per Dr. Hastings (3) Microscopic colitis Code(s): K52.839 - MICROSCOPIC COLITIS, UNSPECIFIED SNOMED Code(s): 810784875 Comment: - Continue Budesonide (4) COPD (chronic obstructive pulmonary disease) Code(s): J44.9 - CHRONIC OBSTRUCTIVE PULMONARY DISEASE, UNSPECIFIED SNOMED Code(s): 62869611 Comment: - Former smoker, on O2 (5) Diabetes Code(s): E11.9 - TYPE 2 DIABETES MELLITUS WITHOUT COMPLICATIONS SNOMED Code(s) : 39725527 Comment: - Diet controlled (6) Diastolic CHF Code(s): I50.30 - UNSPECIFIED DIASTOLIC (CONGESTIVE) HEART FAILURE SNOMED Code (s): 348192689 Comment: - Stable, no exacerbation - Daily weights (7) HTN (hypertension) Code(s): I10 - ESSENTIAL (PRIMARY) HYPERTENSION SNOMED Code(s): 10690329 Comment: - BP stable Status and Disposition: Transfer to floor
[2017-08-26] MEDS: Pantoprazole IV* 80 MG in NS 0.9% 250 ML* 250 ML IV SCH ×2 (06:01→14:52)
--- NOTE | 2017-08-26 07:51 | PRO ---
DATE: 08/25/17 - ROOM #403 REFERRING PHYSICIANS: Michael Aguirre; Michael Hastings * PROCEDURE: Colonoscopy to cecum. INDICATION: A 76-year-old man on dialysis since April 2014 and still getting twice a week hemodialysis, came in with black tarry stool. There was some intermittent lower abdominal pain. He has a past history of mild diverticulosis and microscopic colitis, taking budesonide regularly. He had colonoscopies by Dr Rosales around 2001 and 2009. He had signs of GI bleeding in January 2016 and had an upper endoscopy by me without a source found. Yesterday, he had upper endoscopy by Dr Ferreira without a source found. His states that colonoscopy was felt to be a high risk based on his age and the microscopic colitis. He had been on Eliquis until January 2016. He has never had a thromboembolic event. He has never had any heart problems, though his says he had cardiac scan recently and she has not been informed of the results and apparently has not had any formal cardiac consultation. He has had a prior peripheral vascular procedure and history of carotid endarterectomy, taking aspirin 81 mg. Informed consent had been obtained in the sequence of conversations with the patient and his and then reiterated with me, although he is very sleepy. He did consent to having his DNR order reversed. ENDOSCOPIST: Dr. Marina. MEDICATIONS: None, as the patient was extremely sleepy from two nights essentially with no sleep. He tolerated the exam very well. FINDINGS: He is a chronically ill-appearing, morbidly obese man in bed, passing small spirts of black watery material. The adult scope was inserted and saw normal mucosa. Scope inserted and found a very long capacious left colon. A withdrawal maneuver did straighten this out and the cecum was reached fairly readily. During insertion, 7 to 8 mm polyp on the short stalk was seen in the mid sigmoid. It was clearly not a culprit lesion and was of no threat to him and his anticipated lifestyle. He had 1 to 2 + diverticulosis over about 20 cm, though there were no haustral changes or sense of fixation. In the right colon, there were 12 to 15 low-risk small, pale , vascular anomalies not quite reaching a criteria for AVM. There was no fresh bleeding and no clot. They did not appear to be a priority to treat. The cecal cap otherwise was normal. The lesions were spread over the proximal one-quarter of the right colon. The ileocecal valve appeared normal. On slow withdrawal, no active bleeding or erosion or clot was seen. IMPRESSION: 1. Mild sigmoid diverticulosis. 2. 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 3. Small, mid sigmoid colon polyp. 4. GI bleeding - all of the visualized lesions appear to be not the culprit. The question of whether to pursue further workup has been raised. He is DNR, 3- 1/2 years on dialysis, and at this point it would be appropriate to have his primary physician, ship wirer, and potentially a cardiac consult weigh in as to whether further studies that may not have any therapeutic component would be in his interest. In short, there is a question as to whether he would be a candidate for an operation or a deep enteroscopy. [id number]/[facility] #: [id number] HASMUKH
[2017-08-26] MEDS: Mometasone/Formoter 200/5 MDI INH SCH (07:56)
[2017-08-26] MEDS: Sevelamer TAB* 800 MG PO SCH ×2 (08:47→16:22)
[2017-08-26] MEDS: Metoprolol Tartrate TAB* 25 MG PO SCH (08:47)
[2017-08-26] MEDS: Ropinirole TAB* 0.5 MG TAB PO SCH (08:49)
[2017-08-26] MEDS: CMCS:Midodrine (NF) 5 MG TAB PO SCH (10:10)
[2017-08-26] MEDS ORDERED: Epoetin Alfa* 10,000 UNITS/ML VIAL IV ONE (12:30)
[2017-08-26] MEDS: Atorvastatin* 10 MG TAB PO SCH (16:02)
[2017-08-26] MEDS: Allopurinol TAB* 100 MG PO SCH (16:03)
[2017-08-26] MEDS: CMC:Budesonide CAP(NF) 3 MG PO SCH (16:03)
[2017-08-26] MEDS: Cetirizine* 10 MG TAB PO SCH (16:03)
[2017-08-26 16:43] VITALS: BP 112/61
--- NOTE | 2017-08-27 03:34 | DS ---
CC: Dr. Aguirre * DISCHARGE SUMMARY: DATE OF ADMISSION: 08/24/17 DATE OF DISCHARGE: 08/26/17 PRIMARY CARE PROVIDER: Dr. Michael Aguirre. ATTENDING PHYSICIAN FOR THIS ADMISSION: Dr. Vickie Lomax. MY ATTENDING PHYSICIAN FOR TODAY: Dr. Adriana Archibald.* (DICTATED BY SYLVESTER CONDE NP) CHIEF COMPLAINT: Weakness, black tarry stools, and diarrhea. HOSPITAL COURSE: This is a 76-year-old male patient who presented to the emergency department complaining of weakness and black tarry stools for 2 to 3 days. The patient states he has a history of microscopic colitis and history of GI bleeding. He is on aspirin and budesonide; however, he also had some abdominal pain accompanying these loose, black stools. The patient was admitted for rule out GI bleed. He did have a heme-positive stool in the emergency department because the patient has so many comorbidities and so high- risk, he was admitted to the ICU primarily because he had a low hemoglobin of 6.5. The patient also has very significant history of coronary artery disease, end-stage renal disease, on hemodialysis; multiple other comorbidities. The patient was placed in the ICU for observation. He was given blood transfusions , CAT scan of the abdomen as well, which showed a contracted gallbladder, common bile duct was measuring 10 mm without distal calculus or mass. He had some diverticulosis without evidence of diverticulitis. The patient was transfused and seen by GI service. He initially had an endoscopy with Dr. Ferreria. There were no acute findings of bleeding noted during the endo. He was then prepped at night for colonoscopy, underwent colonoscopy on the 08/25/17 , again no severe acute findings, no obvious signs of bleeding. The patient did have some low-risk AVMs and a polyp, but nothing to cause these symptoms that he presented with. I had a discussion with Dr. Hastings regarding the negative findings of the GI workup. At this point, it is determined that his chronic anemia is secondary to his end-stage renal disease, likely with acutely exacerbated by perhaps having a small GI bleed earlier prior to admission. However, there was again no ulcerations or active bleeding noted during his GI workup. He was transfused again last evening on the and then transfused one last time during dialysis this morning again, discussed this with Dr. Hastings who agreed that the patient was stable for discharge from his perspective. He will continue to monitor the hemoglobin as an outpatient during his dialysis and transfuse the patient as necessary. DISCHARGE DIAGNOSES: 1. Acute-on chronic anemia secondary to chronic disease, likely most related to the patient's ESRD and hemodialysis. 2. End-stage renal disease, on hemodialysis. Continue hemodialysis on Thursday, Thursday, Thursday. Continue epoetin injections and transfusions during dialysis as needed. 3. History of microscopic colitis. Keep him on budesonide, this is currently stable. 4. History of COPD. Maintained on continuous oxygen, stable, and not in exacerbation. 5. History of diabetes, which is diet-controlled. 6. History of diastolic heart failure. He is currently 9 kg over his dry weight. This may also be contributing to some of this failure; however, his fluids will continue to be managed through his hemodialysis. 7. Labile hypotension. The patient does have episodes of hypotension; however , blood pressure remained stable during his final dialysis today. DISCHARGE MEDICATIONS: We did not make any changes to the patient's medications while he was hospitalized. Home medications include: 1. Pletal 100 mg b.i.d. 2. Symbicort 2 puffs 2 times a day. 3. Budesonide 9 mg daily. 4. Lipitor 10 mg daily. 5. Aspirin 81 mg daily. 6. Allopurinol 200 mg daily. 7. Midodrine 5 mg 3 times a week before dialysis. 8. Metoprolol tartrate 12.5 mg 2 times a day. 9. Metolazone 2.5 mg every other day. 10. Fiber supplement 500 mg daily. 11. Claritin 10 mg daily. 12. Folic acid. 13. Vitamin B complex and C complex, also known as Nephro-Chrystal tablets, 1 tablet daily. 14. Requip 0.25 mg 2 times a day. 15. Demadex 40 mg 2 times a day. 16. Renvela 2400 mg 3 times a day with meals. 17. Prilosec 20 mg daily. REVIEW OF SYSTEMS: On the day of discharge, the patient does not have any formal complaints. He denies any fever, fatigue, or chills. No headache. No chest pain. No acute shortness of breath. No nausea, vomiting, or diarrhea. No further black tarry stools. No arthralgias or myalgias and no further constitutional complaints. PHYSICAL EXAMINATION: Today, vital signs are blood pressure 110/75, heart rate 84, respiratory rate 16, 94% on 2 liters nasal cannula with a temperature of 97.5. HEENT: The patient is atraumatic, normocephalic. PERRLA with nonicteric sclerae. Oral mucosa is moist. He is edentulous. Tongue is midline. Neck is supple, nontender. No JVD noted and no carotid bruit auscultated. Cardiovascular: S1, S2 present. No murmurs, gallops, or rubs. Rate and rhythm are regular. Lungs are greatly diminished throughout the lung lomax half way up the bases. No appreciable wheeze. No further adventitious breath sounds noted. Abdomen is obese, nontender. Positive bowel sounds in all 4 quadrants. : Deferred. Musculoskeletal: There is no clubbing and no cyanosis. He has bilateral lower extremity edema at baseline. He has steady gait with assistive devices and full range of motion of his extremities. Neurologic: He is intact. I think he can be forgetful at times, however, he is primarily intact and appropriate. Psychiatric: He is also cooperative and appropriate. LABORATORY DATA: Today, prior to his transfusion, hemoglobin was 7.6, hematocrit 23. Chemistry: Sodium is 137, potassium 3.6. Lactic acid went from 2.8 to 1.8. Troponins, which are chronically elevated because of his dialysis are 0.09 and 0.09. IMAGING: As stated above. DIET: He can have a renal, heart-healthy diet. ACTIVITY: As tolerated. DISPOSITION: The patient will be discharged to home. He has VNS services already set up in the house. The patient should continue his dialysis Thursday, Thursday, and Thursday. He should have a followup H and H and electrolytes drawn on Thursday when he goes to dialysis. Dr. Hastings will manage his blood transfusions as needed. Continue his epoetin with dialysis, he is currently on 9000 units on dialysis days. This should also be continued and followed very closely. The patient and his are in agreement with the discharge plan of care and agreed to follow up. Also of note, please follow up with Dr. Aguirre, your primary care provider, as needed and Dr. Hastings very very closely to continue to monitor for any dynamic changes that would be needed in your hemodialysis regimen. SYLVESTER CONDE, CARTOGRAPHIC DESIGNER [id number]/[facility] #: [id number] [facility]
== END 2017-08-26 16:30 | disposition home health service (06) | DRG 291 ==
LOC: ED 22:09 → ICU 08-24 00:14 → MED 08-25 16:55
PROVIDERS: ADMIT Pediatrics; ATTEND Internal Medicine
PROC: 5A1D70Z Performance of Urinary Filtration, Intermittent, Less than 6 Hours Per Day (ICD-10-PCS; 2017-08-24)
PROC: 0DJ08ZZ Inspection of Upper Intestinal Tract, Via Natural or Artificial Opening Endoscopic (ICD-10-PCS; principal; 2017-08-25)
PROC: 0DJD8ZZ Inspection of Lower Intestinal Tract, Via Natural or Artificial Opening Endoscopic (ICD-10-PCS; 2017-08-25)
PROC: 30233N1 Transfusion of Nonautologous Red Blood Cells into Peripheral Vein, Percutaneous Approach (ICD-10-PCS; 2017-08-26)
PROC: 5A1D70Z Performance of Urinary Filtration, Intermittent, Less than 6 Hours Per Day (ICD-10-PCS; 2017-08-26)
DX: I13.2 Hypertensive heart and chronic kidney disease with heart failure and with stage 5 chronic kidney disease, or end stage renal disease (principal); N18.6 End stage renal disease; I50.32 Chronic diastolic (congestive) heart failure; K92.1 Melena; D63.1 Anemia in chronic kidney disease; E11.22 Type 2 diabetes mellitus with diabetic chronic kidney disease; I45.4 Nonspecific intraventricular block; E11.51 Type 2 diabetes mellitus with diabetic peripheral angiopathy without gangrene; E11.39 Type 2 diabetes mellitus with other diabetic ophthalmic complication; H42 Glaucoma in diseases classified elsewhere; I48.91 Unspecified atrial fibrillation; J44.9 Chronic obstructive pulmonary disease, unspecified; K21.9 Gastro-esophageal reflux disease without esophagitis; K52.9 Noninfective gastroenteritis and colitis, unspecified; M10.9 Gout, unspecified; M19.90 Unspecified osteoarthritis, unspecified site; K52.839 Microscopic colitis, unspecified; E78.5 Hyperlipidemia, unspecified; I95.89 Other hypotension; Z66 Do not resuscitate; K31.9 Disease of stomach and duodenum, unspecified; K57.30 Diverticulosis of large intestine without perforation or abscess without bleeding; K63.5 Polyp of colon; E66.01 Morbid (severe) obesity due to excess calories; Z68.39 Body mass index [BMI] 39.0-39.9, adult; Z86.19 Personal history of other infectious and parasitic diseases; Z87.891 Personal history of nicotine dependence; Z88.8 Allergy status to other drugs, medicaments and biological substances; Z99.2 Dependence on renal dialysis; Z80.0 Family history of malignant neoplasm of digestive organs; I25.2 Old myocardial infarction; Z82.49 Family history of ischemic heart disease and other diseases of the circulatory system; Z83.3 Family history of diabetes mellitus; I25.10 Atherosclerotic heart disease of native coronary artery without angina pectoris; S41.102A Unspecified open wound of left upper arm, initial encounter; S41.101A Unspecified open wound of right upper arm, initial encounter; K57.90 Diverticulosis of intestine, part unspecified, without perforation or abscess without bleeding; Z79.82 Long term (current) use of aspirin; K29.70 Gastritis, unspecified, without bleeding
CPT/HCPCS: 36415; 74177; 80048; 80053; 82272; 83605; 84484; 85014; 85018; 85025; 85060; 85610; 85730; 86850; 86900; 86901; 86922; 87641; 90935; 93005; 94640; 99156; 99285; A9270-GY; G0257; J0885; J1940; J2250; J3010; P9040; Q9967

== ENCOUNTER 2017-09-29 02:48 | Emergency (ER) | payer MEDICARE ==
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
[2017-09-29 03:40] LABS: ABS Basophils 0.1 10^3/ul (0-0.2); ABS Eosinophils 0.1 10^3/ul (0-0.6); ABS Lymphocytes 1.7 10^3/ul (1.0-4.8); ABS Neutrophils 7.6 10^3/ul (1.5-7.7); ABS Nucleated RBC 0 10^3/ul; Hematocrit 23 % (42-52); Hemoglobin 7.7 g/dl (14.0-18.0); Lymphocyte % 16.2 % (25-47); Mean Corpuscular HGB Conc 33 g/dl (31-36); Mean Corpuscular Hemoglobin 34 pg (27-31); Mean Corpuscular Volume 101 fL (80-94); Mean Platelet Volume 7.1 um3 (7.4-10.4); Nucleated Red Blood Cells % 0.1; Platelet Count 141 10^3/ul (150-450); Red Cell Distribution Width 22 % (10.5-15); White Blood Count 10.5 10^3/ul (3.5-10.8)
[2017-09-29 03:49] LABS: INR 1.07 (0.77-1.02)
--- NOTE | 2017-09-29 04:18 | ED ---
Complex/Multi-Sys Presentation - HPI Summary HPI Summary: Pt is 76 y/[facility]. He felt ok during the day and ate dinner, but when he sat up in bed tonight he felt nauseous and weak. Notes swelling in feet, SOB, and black stool movements frequently which cause him to wear a diaper. Denies chest pain. PMHx of COPD. - History Of Current Complaint Chief Complaint: EDNauseaVomitDiarrh Time Seen by Provider: 09/29/17 02:57 Hx Obtained From: Patient Onset/Duration: Sudden Onset, Lasting Hours, Still Present Aggravating Factor(s): Nothing Alleviating Factor(s): Nothing Associated Signs And Symptoms: Positive: Weakness, SOB, Nausea, Other - swelling in feet, black stool. Negative: Chest Pain - Allergies/Home Medications Allergies/Adverse Reactions: Allergies Allergy/AdvReac Type Severity Reaction Status Date / Time lisinopril Allergy Unknown Verified 08/23/17 22:23 Reaction Details olmesartan [From Benicar] Allergy Unknown Verified 08/23/17 22:24 Reaction Details PMH/Surg Hx/FS Hx/Imm Hx Endocrine/Hematology History: Reports: Hx Diabetes - diet control, Hx Anemia Cardiovascular History: Reports: Hx Congestive Heart Failure, Hx Coronary Artery Disease, Hx Hypertension, Hx Myocardial Infarction, Hx Peripheral Vascular Disease, Other Cardiovascular Problems/Disorders - Carotid stenosis, PVD, BBB, afib Respiratory History: Reports: Hx Chronic Obstructive Pulmonary Disease (COPD) GI History: Reports: Hx Gastroesophageal Reflux Disease, Hx Gastrointestinal Bleed, Other GI Disorders - chronic diarrhea History: Reports: Hx Chronic Renal Failure, Hx Dialysis - HD, Hx Renal Disease, Other Problems/Disorders - ESRD Musculoskeletal History: Reports: Hx Arthritis, Hx Back Problems - pain, Hx Gout Sensory History: Reports: Hx Cataracts, Hx Contacts or Glasses, Hx Glaucoma Denies: Hx Hearing Aid, Hx Hearing Problem, Other Sensory Impairments Opthamlomology History: Reports: Hx Cataracts, Hx Contacts or Glasses, Hx Glaucoma Denies: Other Sensory Impairments Neurological History: Denies: Hx Dementia, Hx Developmental Delay, Hx Headaches, Hx Migraine, Hx Nerve Disease, Hx Seizures, Hx Spinal Cord Injury, Hx Transient Ischemic Attacks (TIA), Other Neuro Impairments/Disorders - Surgical History Surgery Procedure, Year, and Place: APPENDECTOMY, right carotid endarterectomy, bilateral cataracts - Immunization History Date of Influenza Vaccine: 09/2016 Infectious Disease History: No Infectious Disease History: Reports: Hx Clostridium Difficile, Hx Shingles Denies: Hx of Known/Suspected MRSA, Traveled Outside the [place] in Last 30 Days - Family History Known Family History: Positive: Cardiac Disease, Diabetes - Social History Alcohol Use: None Alcohol Amount: quit 20 yrs ago Hx Substance Use: No Substance Use Type: Reports: None Hx Tobacco Use: Yes Smoking Status (MU): Former Smoker Type: Cigarettes Amount Used/How Often: QUIT 1989 Review of Systems Positive: Other - Generalized weakness Negative: Chest Pain Positive: Shortness Of Breath Positive: Nausea, Other - Black stool All Other Systems Reviewed And Are Negative: Yes Physical Exam - Summary Physical Exam Summary: Appearance: Well-appearing, Well-nourished, lying in bed comfortably Skin: Warm, dry, no obvious rash Eyes: sclera anicteric, no conjunctival pallor ENT: mucous membranes moist, pharynx appears normal Neck: Supple, nontender Respiratory: Clear to auscultation, no signs of respiratory distress Cardiovascular: Normal S1, S2. No murmurs. Normal distal pulses in tibial and radial bilaterally. Abdomen: Soft, nontender, normal active bowel sounds present Musculoskeletal: Normal, Strength/ROM Intact Neurological: A&Ox3, awake and alert, mentation is normal, speech is fluent and appropriate Psychiatric: affect is normal, does not appear anxious or depressed Triage Information Reviewed: Yes Vital Signs On Initial Exam: Initial Vitals Pulse Resp BP Pulse Ox 90 22 109/56 99 09/29/17 02:59 09/29/17 02:59 09/29/17 02:59 09/29/17 02:59 Vital Signs Reviewed: Yes Diagnostics - Vital Signs Vital Signs Temp Pulse Resp BP Pulse Ox 09/29/17 03:06 98.1 F 83 23 109/56 99 09/29/17 03:01 89 22 94 09/29/17 02:59 90 22 109/56 99 - Laboratory Lab Results: Lab Results 09/29/17 09/29/17 09/29/17 Range/Units 03:27 03:27 03:27 WBC 10.5 (3.5-10.8) 10^3/ul RBC 2.30 L (4.00-5.40) 10^6/ul Hgb 7.7 L (14.0-18.0) g/dl Hct 23 L (42-52) % MCV 101 H (80-94) fL MCH 34 H (27-31) pg MCHC 33 (31-36) g/dl RDW 22 H (10.5-15) % Plt Count 141 L (150-450) 10^3/ul MPV 7.1 L (7.4-10.4) um3 Neut % (Auto) 72.3 (38-83) % Lymph % (Auto) 16.2 L (25-47) % [place] % (Auto) 9.9 H (0-7) % Eos % (Auto) 1.0 (0-6) % Baso % (Auto) 0.6 (0-2) % Absolute Neuts (auto) 7.6 (1.5-7.7) 10^3/ul Absolute Lymphs (auto) 1.7 (1.0-4.8) 10^3/ul Absolute Monos (auto) 1.0 H (0-0.8) 10^3/ul Absolute Eos (auto) 0.1 (0-0.6) 10^3/ul Absolute Basos (auto) 0.1 (0-0.2) 10^3/ul Absolute Nucleated RBC 0 10^3/ul Nucleated RBC % 0.1 INR (Anticoag Therapy) 1.07 H (0.77-1.02) APTT 26.8 (26.0-36.3) seconds Sodium 137 (135-145) mmol/L Potassium 3.9 (3.5-5.0) mmol/L Chloride 92 L (101-111) mmol/L Carbon Dioxide 32 (22-32) mmol/L Anion Gap 13 H (2-11) mmol/L BUN 60 H (6-24) mg/dL Creatinine 6.10 H (0.67-1.17) mg/dL Est GFR ( Amer) 10.9 (>60) Est GFR (Non-Af Amer) 9.0 (>60) BUN/Creatinine Ratio 9.8 (8-20) Glucose 123 H (70-100) mg/dL Calcium 8.8 (8.6-10.3) mg/dL Total Bilirubin 0.60 (0.2-1.0) mg/dL AST 14 (13-39) U/L ALT 10 (7-52) U/L Alkaline Phosphatase 77 (34-104) U/L Total Protein 6.3 L (6.4-8.9) g/dL Albumin 3.2 (3.2-5.2) g/dL Globulin 3.1 (2-4) g/dL Albumin/Globulin Ratio 1.0 (1-3) Blood Type Antibody Screen 09/29/17 Range/Units 03:27 WBC (3.5-10.8) 10^3/ul RBC (4.00-5.40) 10^6/ul Hgb (14.0-18.0) g/dl Hct (42-52) % MCV (80-94) fL MCH (27-31) pg MCHC (31-36) g/dl RDW (10.5-15) % Plt Count (150-450) 10^3/ul MPV (7.4-10.4) um3 Neut % (Auto) (38-83) % Lymph % (Auto) (25-47) % [place] % (Auto) (0-7) % Eos % (Auto) (0-6) % Baso % (Auto) (0-2) % Absolute Neuts (auto) (1.5-7.7) 10^3/ul Absolute Lymphs (auto) (1.0-4.8) 10^3/ul Absolute Monos (auto) (0-0.8) 10^3/ul Absolute Eos (auto) (0-0.6) 10^3/ul Absolute Basos (auto) (0-0.2) 10^3/ul Absolute Nucleated RBC 10^3/ul Nucleated RBC % INR (Anticoag Therapy) (0.77-1.02) APTT (26.0-36.3) seconds Sodium (135-145) mmol/L Potassium (3.5-5.0) mmol/L Chloride (101-111) mmol/L Carbon Dioxide (22-32) mmol/L Anion Gap (2-11) mmol/L BUN (6-24) mg/dL Creatinine (0.67-1.17) mg/dL Est GFR ( Amer) (>60) Est GFR (Non-Af Amer) (>60) BUN/Creatinine Ratio (8-20) Glucose (70-100) mg/dL Calcium (8.6-10.3) mg/dL Total Bilirubin (0.2-1.0) mg/dL AST (13-39) U/L ALT (7-52) U/L Alkaline Phosphatase (34-104) U/L Total Protein (6.4-8.9) g/dL Albumin (3.2-5.2) g/dL Globulin (2-4) g/dL Albumin/Globulin Ratio (1-3) Blood Type O Positive Antibody Screen Pending Result Diagrams: 09/29/17 03:27 09/29/17 03:27 Lab Statement: Any lab studies that have been ordered have been reviewed, and results considered in the medical decision making process. Complex Multi-Symp Course/Dx - Diagnoses Provider Diagnoses: Chronic anemia, Near syncope Discharge - Sign-Out/Discharge Documenting (check all that apply): Patient Departure - Discharge Plan Condition: Good Disposition: HOME Patient Education Materials: Anemia (ED) Referrals: Michael Aguirre MD [Primary Care Provider] - Michael Hastinsg MD [Medical Doctor] - Additional Instructions: Your blood counts this morning are stable. - Billing Disposition and Condition Condition: GOOD Disposition: Home - Attestation Statements Document Initiated by Scribe: Yes Documenting Scribe: Claudio John Provider For Whom Jennifer is Documenting (Include Credential): Lion Smith MD Scribe Attestation: Claudio Lee, scribed for Lion Smith MD on 09/30/17 at 0452. Scribe Documentation Reviewed: Yes Provider Attestation: The documentation as recorded by the veronaibClaudio rowe accurately reflects the service I personally performed and the decisions made by me, Lion Smith MD
[2017-09-29 05:44] VITALS: BP 117/48
== END 2017-09-29 05:44 | disposition home or self-care (01) ==
LOC: ED 02:48
DX: R55 Syncope and collapse (principal); D64.9 Anemia, unspecified; J44.9 Chronic obstructive pulmonary disease, unspecified; Z87.891 Personal history of nicotine dependence; Z88.8 Allergy status to other drugs, medicaments and biological substances
CPT/HCPCS: 36415; 80053; 85025; 85610; 85730; 86850; 86900; 86901; 99282